=== PATIENT | male | born 1995 | race African-American/Black ===

== ENCOUNTER 2018-05-22 13:16 | Inpatient (IN) | payer OTHER ==
[2018-05-22 13:32] VITALS: BMI 32.4
--- NOTE | 2018-05-22 15:20 | HP ---
COWS - Scale Resting Pulse: 1= [place] 81-100 Sweatin= Chills/Flushing Restless Observation: 1= Difficult to Sit Still Pupil Size: 2= Moderately Dilated Bone or Joint Aches: 2= Severe Diffuse Aches Runny Nose/ Eye Tearin= None GI Upset > 30mins: 2= Nausea/Diarrhea Tremor Observation: 2= Slight Tremor Visible Yawning Observation: 0= None Anxiety or Irritability: 2=Irritable/Anxious Goose Flesh Skin: 0=Smooth Skin COWS Score: 13 CIWA Score Nausea/Vomitin Muscle Tremors: 2 Anxiety: 3 Agitation: 2 Paroxysmal Sweats: 2 Orientation: 0-Oriented Tacttile Disturbances: 0-None Auditory Disturbances: 0-None Visual Disturbances: 0-None Headache: 2-Mild CIWA-Ar Total Score: 13 - Admission Criteria OASAS Guidelines: Admission for Medically Managed Detox: Requires at least one of the followin. CIWA greater than 12 2. Seizures within the past 24 hours 3. Delirium tremens within the past 24 hours 4. Hallucinations within the past 24 hours 5. Acute intervention needed for co occurring medical disorder 6. Acute intervention needed for co occurring psychiatric disorder 7. Severe withdrawal that cannot be handled at a lower level of care (continued vomiting, continued diarrhea, abnormal vital signs) requiring intravenous medication and/or fluids 8. Admission ROS [facility] Chief Complaint: ETOH/HEROIN WITHDRAWAL SYMPTOMS Allergies/Adverse Reactions: Allergies Allergy/AdvReac Type Severity Reaction Status Date / Time peanut Allergy Severe Difficulty Verified 05/22/18 14:42 Breathing tree nut Allergy Severe Difficulty Verified 05/22/18 14:42 Breathing History of Present Illness: PATIENT STARTED DRINKING ETOH AT AGE 14, INITIALLY WOULD DRINK UNTIL HE BLACKED OUT. PATIENT THEN [place] AND STARTED SMOKING MARIJUANA, AMOUNT VARIES. COCAINE USE STARTED AT AGE 18. PATIENT CURRENTLY DRINKS 6 BEERS AND 1 PINT OF LIQUOR DAILY, LAST DRINK WAS EARLY YESTERDAY MORNING. PATIENT ALSO SNIFFS/ SMOKES HEROIN, 10 BAGS DAILY, LAST TIME HE USED WAS THIS MORNING. PATIENT TAKES 6MG OF XANAX AND KLONIPIN DAILY, LAST TIME HE TOOK MEDICATION (NON-PRESCRIBED WAS LAST NIGHT). UDS + THC, OPI. PATIENT LAST DETOX ATTEMPT AT [facility] IN 03/2018. PATIENT DENIES H/O SEIZURES, FALLS AND OVERDOSE. + H/O BLACKOUTS. PMH ASTHMA AND ANXIETY. DENIES SI/HI AND SUICIDE ATTEMPTS. Exam Limitations: No Limitations - Ebola screening Have you traveled outside of the country in the last 21 days: No Have you had contact with anyone from an Ebola affected area: No Have you been sick,other than usual withdrawal symptoms: No Do you have a fever: No - Review of Systems Constitutional: Chills, Night Sweats, Changes in sleep EENT: reports: No Symptoms Reported Respiratory: reports: No Symptoms reported Cardiac: reports: No Symptoms Reported GI: reports: Diarrhea, Nausea, Poor Fluid Intake, Abdominal cramping : reports: No Symptoms Reported Musculoskeletal: reports: Back Pain, Muscle Pain Integumentary: reports: Sweating Neuro: reports: Headache, Tremors Endocrine: reports: No Symptoms Reported Hematology: reports: No Symptoms Reported Psychiatric: reports: Orientated x3, Anxious Patient History - Patient Medical History Hx Anemia: No Hx Asthma: Yes (childhood asthma) Hx Cancer: No Hx Cardiac Disorders: No Hx Congestive Heart Failure: No Hx Hypertension: No Hx Hypercholesterolemia: No Hx Pacemaker: No HX Cerebrovascular Accident: No Hx Seizures: No Hx Dementia: No Hx Diabetes: No Hx Gastrointestinal Disorders: No Hx Liver Disease: No Hx Genitourinary Disorders: No Hx Sexually Transmitted Disorders: No Hx Renal Disease (ESRD): No Hx Thyroid Disease: No Hx Human Immunodeficiency Virus (HIV): No (negative) Hx Hepatitis C: No Hx Depression: No Hx Suicide Attempt: No (denies) Hx Bipolar Disorder: No Hx Schizophrenia: No - Patient Surgical History Past Surgical History: Yes Hx Orthopedic Surgery: Yes (R hand and wrist sx in 2007 tendon and nerve repair. ) Anesthesia Reaction: No - PPD History Date: 08/10/15 PPD to be Administered?: Yes - Smoking Cessation Smoking history: Never smoked Hx Chewing Tobacco Use: No Initiated information on smoking cessation: No - Substance & Tx. History Hx Alcohol Use: Yes Hx Substance Use: Yes Substance Use Type: Alcohol, Cocaine, Heroin, Marijuana, Tranquilizers - Substances Abused Heroin Route: Inhalation Frequency: Daily Amount used: 10 bags Age of first use: 17 Date of Last Use: 05/22/18 Benzodiazepine (Klonopin) Route: Oral Frequency: Daily Amount used: 2 2mg tablets Age of first use: 17 Date of Last Use: 05/21/18 Alprazolam (Xanax) Route: Oral Frequency: 1-3 times last 30 days Amount used: 1 bar Age of first use: 10 Date of Last Use: 05/16/18 Alcohol Route: Oral Frequency: Daily Amount used: 6 12oz cans of soda, 1 pint of [place], 1 bottle of wine Age of first use: 14 Date of Last Use: 05/20/18 Marijuana/Hashish Route: Smoking Frequency: Daily Amount used: 1 gram Age of first use: 16 Date of Last Use: 05/22/18 Family Disease History - Family Disease History Family History: Denies Admission Physical Exam [facility] - Vital Signs Vital Signs: Vital Signs - 24 hr 05/22/18 13:22 Temperature 97.8 F Pulse Rate 81 Respiratory 19 Rate Blood Pressure 121/93 - Physical General Appearance: Yes: Disheveled, Tremorous, Sweating, Anxious HEENTM: Yes: EOMI, Hearing grossly Normal, Normal ENT Inspection, Normocephalic , Normal Voice, SHAYNE, Pharynx Normal Respiratory: Yes: Chest Non-Tender, Lungs Clear, Normal Breath Sounds, No Respiratory Distress, No Accessory Muscle Use Neck: Yes: Within Normal Limits, No masses,lesions,Nodules, Supple Breast: Yes: Breast Exam Deferred Cardiology: Yes: Regular Rhythm, Regular Rate, S1, S2 Abdominal: Yes: Normal Bowel Sounds, Non Tender, Soft Genitourinary: Yes: Within Normal Limits Back: Yes: Normal Inspection, Muscle Spasm Musculoskeletal: Yes: full range of Motion, Gait Steady, Back pain, Muscle Pain Extremities: Yes: Normal Inspection, Normal Range of Motion, Non-Tender, Tremors Neurological: Yes: 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 NML intact, Fully Oriented, Alert, Motor Strength 5/5, Normal Response (ANXIOUS) Integumentary: Yes: Normal Color, Warm, Moist - Diagnostic (1) Cocaine abuse Current Visit: Yes Status: Chronic (2) Alcohol dependence with uncomplicated withdrawal Current Visit: Yes Status: Acute (3) Cannabis dependence Current Visit: Yes Status: Chronic (4) Opioid dependence with withdrawal Current Visit: Yes Status: Acute (5) Substance-induced anxiety disorder Current Visit: Yes Status: Chronic Cleared for Admission [facility] - Detox or Rehab [facility] Level of Care: Medically Managed Detox Regimen/Protocol: Methadone/Valium [facility] Breath Alcohol Content Breath Alcohol Content: 0 Urine Drug Screen - Results Drug Screen Negative: No Urine Drug Screen Results: THC-Marijuana, OPI-Opiates
[2018-05-22] MEDS ORDERED: MAGNESIUM HYDROX 2400MG/30ML ORAL SUSPENSION 30 ML CUP PO PRN (15:30)
[2018-05-22] MEDS ORDERED: MAGNESIUM CITRATE 300 ML BOTTLE PO PRN (15:30)
[2018-05-22] MEDS ORDERED: IBUPROFEN 400 MG TABLET (FP) PO PRN (15:30)
[2018-05-22] MEDS ORDERED: LOPERAMIDE HCL 2 MG CAPSULE PO PRN (15:30)
[2018-05-22] MEDS ORDERED: hydrOXYzine PAMOATE 50 MG CAPSULE (FP) PO PRN (15:30)
[2018-05-22] MEDS ORDERED: MENTHOL/PHENOL 1 EACH UD MM PRN (15:30)
[2018-05-22] MEDS ORDERED: MAG HYDROX/AL HYDROX/SIMETH 30 ML UNIT-DOSE CUP PO PRN (15:30)
[2018-05-22] MEDS ORDERED: guaiFENesin/D-METHORPHAN HB 10 ML UNIT-DOSE CUPS PO PRN (15:30)
[2018-05-22] MEDS ORDERED: ACETAMINOPHEN 325 MG TABLET (FP) PO PRN (15:30)
[2018-05-22] MEDS ORDERED: P-EPHED 60MG/TRIPROLIDI 2.5MG TABLET PO PRN (15:30)
[2018-05-22] MEDS ORDERED: ALBUTEROL SO4 8 GM HFA INHALER IH PRN (15:32)
[2018-05-22] MEDS ORDERED: diazePAM 5 MG TABLET PO PRN (15:33)
[2018-05-22] MEDS ORDERED: METHADONE HCL 10 MG TABLET (FOR DETOX USE ONLY) PO ONE ×2 (16:30→23:00)
[2018-05-22] MEDS ORDERED: diazePAM 5 MG TABLET PO ONE (16:30)
[2018-05-22] MEDS: diazePAM 5 MG TABLET PO SCH ×2 (17:59→22:26)
[2018-05-22] MEDS: MELATONIN 5 MG TABLETS PO PRN (22:26)
[2018-05-22] MEDS: THIAMINE HCL 100 MG TABLET (FP) PO SCH (22:26)
[2018-05-22 23:06] LABS: URINE APPEARANCE CLEAR; URINE BILIRUBIN NEGATIVE (<2.0 mg/dL); URINE COLOR STRAW; URINE GLUCOSE (UA) NEGATIVE (NEGATIVE); URINE KETONE NEGATIVE (NEGATIVE); URINE LEUK ESTERASE NEGATIVE (NEGATIVE); URINE NITRITE NEGATIVE (NEGATIVE); URINE PROTEIN NEGATIVE (NEGATIVE); URINE UROBILINOGEN NEGATIVE mg/dL (0.2-1.0)
[2018-05-23] MEDS: diazePAM 5 MG TABLET PO SCH ×3 (06:06→22:03)
[2018-05-23] MEDS ORDERED: METHADONE HCL 10 MG TABLET (FOR DETOX USE ONLY) PO SCH (10:00)
[2018-05-23 10:24] LABS: HEMATOCRIT 39.6 % (35.4-49); HEMOGLOBIN 12.7 GM/dL (11.7-16.9); MCH 28.2 pg (25.7-33.7); MCHC 32.1 g/dl (32.0-35.9); MEAN PLT VOLUME 7.4 fl (7.5-11.1); PLATELET COUNT 291 K/MM3 (134-434); RBC 4.51 M/mm3 (4.00-5.60); RDW 13.3 % (11.9-15.9); WHITE BLOOD COUNT 4.5 K/mm3 (4.0-10.0)
[2018-05-23] MEDS: PRENATAL VITAMINS W/ FOLIC ACID TABLET (FP) PO SCH (10:28)
[2018-05-23 10:42] LABS: ALBUMIN 3.8 g/dl (3.4-5.0); ALK PHOS 66 U/L (45-117); ANION GAP 7 MMOL/L (8-16); BILIRUBIN,TOTAL 0.4 mg/dL (0.2-1); BLOOD UREA NITROGEN 15 mg/dL (7-18); CALCIUM 8.9 mg/dL (8.5-10.1); CHLORIDE 101 mmol/L (98-107); CO2 30 mmol/L (21-32); GLUCOSE,RANDOM 73 mg/dL (74-106); POTASSIUM 4.3 mmol/L (3.5-5.1); SGOT/AST 17 U/L (15-37); SGPT/ALT 37 U/L (13-61); SODIUM 139 mmol/L (136-145); TOT PROT 6.6 g/dl (6.4-8.2)
--- NOTE | 2018-05-23 12:37 | EKG ---
Test Reason : Blood Pressure : / mmHG Vent. Rate : 059 BPM Atrial Rate : 059 BPM P-R Int : 170 ms QRS Dur : 092 ms QT Int : 390 ms P-R-T Axes : 049 070 050 degrees QTc Int : 386 ms SINUS BRADYCARDIA OTHERWISE NORMAL ECG Confirmed by MD AMINAH, SANJUANA ([id number]) on 05/23/2018 12:36:54 PM Referred By: Confirmed By:SANJUANA BURR MD
--- NOTE | 2018-05-23 14:46 | CONSULT ---
[facility] Psychiatric Consult - Data Date of interview: 05/23/18 Admission source: [facility] Identifying data: Readmission to [facility] for this 22 y/o AA male seeking detoxification treatment, on , for heroin, cocaine, alcohol, opioid analgesics and benzodiazepine (Clonazepam) dependence. Patient is single, no children, homeless, unemployed (just lost his job) and cureently without a source of income. Substance Abuse History: Confirmed by the patient. Details in current [facility] reports :Smoking history: Never smoked. Hx Chewing Tobacco Use: No. Initiated information on smoking cessation: No. - Substance & Tx. History. Hx Alcohol Use: Yes. Hx Substance Use: Yes. Substance Use Type: Alcohol, Cocaine, Heroin , Marijuana, Tranquilizers. - Substances Abused. Heroin. Route: Inhalation. Frequency: Daily. Amount used: 10 bags. Age of first use: 17. Date of Last Use: 05/22/18. Benzodiazepine (Klonopin). Route: Oral. Frequency: Daily. Amount used: 2 2mg tablets. Age of first use: 17. Date of Last Use: 05/21/18. Alprazolam (Xanax). Route: Oral. Frequency: 1-3 times last 30 days. Amount used: 1 bar. Age of first use: 10. Date of Last Use: . Alcohol. Route: Oral. Frequency: Daily. Amount used: 6 12oz cans of soda, 1 pint of [place], 1 bottle of wine. Age of first use: 14. Date of Last Use: 05/20/18. Marijuana/Hashish. Route: Smoking. Frequency: Daily. Amount used: 1 gram. Age of first use: 16. Date of Last Use: 05/22/18 Medical History: History of bronchial asthma (childhood) and surgery for tendon + nerve repair (right hand/wrist) in 2008, the consequence of impulsivity ( punching a glass door). Psychiatric History: Patient endorses a history of two psychiatric hospitalizations at [facility] ([facility]) in 2012. Diagnosed with Drug-induced psychosis (self-report). Mr Montiel indicates a family history of psychiatric issues (mother is diagnosed with bipolar disorder, father with PTSD and maternal grand mother with paranoid schizophrenia). Patient has no recall of medications orescribed in 2012. Declares that he has been off psychotropic medications since his discharge from [facility]. No reported history of psychiatric OPD care. Patient denies suicide attempts. Physical/Sexual Abuse/Trauma History: Patient denies. Additional Comment: Urine Drug Screen Results: THC-Marijuana, OPI-Opiates. Noted. Mental Status Exam - Mental Status Exam Alert and Oriented to: Time, Place, Person Cognitive Function: Good Patient Appearance: Well Groomed Mood: Withdrawn, Apprehensive Affect: Mood Congruent Patient Behavior: Fatigued, Cooperative Speech Pattern: Clear, Appropriate Voice Loudness: Normal Thought Process: Goal Oriented Thought Disorder: Not Present Hallucinations: Denies Suicidal Ideation: Denies Homicidal Ideation: Denies Insight/Judgement: Poor Sleep: Well Appetite: Good Muscle strength/Tone: Normal Gait/Station: Normal Psychiatric Findings - Problem List ([place] 1, 2,3) (1) Alcohol dependence with uncomplicated withdrawal Current Visit: Yes Status: Acute (2) Opioid dependence with withdrawal Current Visit: Yes Status: Acute (3) Cannabis dependence Current Visit: Yes Status: Acute (4) Cocaine abuse Current Visit: Yes Status: Chronic Comment: Tox screen negative for cocaine . Patient admitted to using cocaine on/off. (5) Substance induced mood disorder Current Visit: Yes Status: Acute - Initial Treatment Plan Initial Treatment Plan: Psychoeducation. Sleep hygiene. Detoxification. Observation.
--- NOTE | 2018-05-23 15:52 | PN ---
S CIWA - CIWA Score Nausea/Vomitin Muscle Tremors: 4-Moderate,w/Arms Extend Anxiety: 4-Mod. Anxious/Guarded Agitation: 4-Moderately Restless Paroxysmal Sweats: 3 Orientation: 0-Oriented Tacttile Disturbances: 0-None Auditory Disturbances: 0-None Visual Disturbances: 0-None Headache: 0-None Present CIWA-Ar Total Score: 17 BHS COWS - Scale Resting Pulse: 0= SC 80 or Below Sweatin=Flushed/Facial Moisture Restless Observation: 3= Extraneous Movement Pupil Size: 0= Normal to Room Light Bone or Joint Aches: 2= Severe Diffuse Aches Runny Nose/ Eye Tearin= Runny Nose/Eyes GI Upset > 30mins: 3= Vomiting/Diarrhea Tremor Observation of Outstretched Hands: 2= Slight Tremor Visible Yawning Observation: 0= None Anxiety or Irritability: 2=Irritable/Anxious Goose Flesh Skin: 0=Smooth Skin COWS Score: 16 S Progress Note (SOAP) Subjective: Stomach ache, diarrhea, chills, sweating Objective: 05/23/18 15:51 Last Vital Signs Temp Pulse Resp BP Pulse Ox 97.1 F L 58 L 18 118/62 05/23/18 13:11 05/23/18 13:11 05/23/18 13:11 05/23/18 13:11 Laboratory Tests 05/22/18 05/23/18 05/23/18 23:00 07:00 07:00 WBC 4.5 RBC 4.51 Hgb 12.7 Hct 39.6 MCV 88.0 MCH 28.2 MCHC 32.1 RDW 13.3 Plt Count 291 MPV 7.4 L Sodium 139 Potassium 4.3 Chloride 101 Carbon Dioxide 30 Anion Gap 7 L BUN 15 Creatinine 1.0 Creat Clearance w eGFR > 60 Random Glucose 73 L Calcium 8.9 Total Bilirubin 0.4 AST 17 ALT 37 Alkaline Phosphatase 66 Total Protein 6.6 Albumin 3.8 Urine Color Straw Urine Appearance Clear Urine pH 6.0 Ur Specific [place] 1.015 Urine Protein Negative Urine Glucose (UA) Negative Urine Ketones Negative Urine Blood Negative Urine Nitrite Negative Urine Bilirubin Negative Urine Urobilinogen Negative Ur Leukocyte Esterase Negative RPR Titer HIV 1&2 Antibody Screen HIV P24 Antigen 05/23/18 05/23/18 07:00 07:00 WBC RBC Hgb Hct MCV MCH MCHC RDW Plt Count MPV Sodium Potassium Chloride Carbon Dioxide Anion Gap BUN Creatinine Creat Clearance w eGFR Random Glucose Calcium Total Bilirubin AST ALT Alkaline Phosphatase Total Protein Albumin Urine Color Urine Appearance Urine pH Ur Specific [place] Urine Protein Urine Glucose (UA) Urine Ketones Urine Blood Urine Nitrite Urine Bilirubin Urine Urobilinogen Ur Leukocyte Esterase RPR Titer Nonreactive HIV 1&2 Antibody Screen Negative HIV P24 Antigen Negative Labs reviewed Assessment: 05/23/18 15:51 Withdrawal symptoms Plan: Continue detox Encouraged PO water intake
[2018-05-23] MEDS: THIAMINE HCL 100 MG TABLET (FP) PO SCH (22:02)
[2018-05-23] MEDS: MELATONIN 5 MG TABLETS PO PRN (22:03)
[2018-05-24] MEDS ORDERED: METHADONE HCL 5 MG TABLET (FOR DETOX USE ONLY) PO SCH (10:00)
[2018-05-24] MEDS: PRENATAL VITAMINS W/ FOLIC ACID TABLET (FP) PO SCH (10:20)
[2018-05-24] MEDS: diazePAM 5 MG TABLET PO SCH ×2 (10:20→21:33)
[2018-05-24] MEDS ORDERED: ONDANSETRON *ODT* 4 MG TABLET SL PRN (11:28)
--- NOTE | 2018-05-24 13:29 | PN ---
[facility] CIWA - CIWA Score Nausea/Vomitin-Mild Nausea/No Vomiting Muscle Tremors: 2 Anxiety: 3 Agitation: 3 Paroxysmal Sweats: 3 Orientation: 0-Oriented Tacttile Disturbances: 0-None Auditory Disturbances: 0-None Visual Disturbances: 0-None Headache: 1-Very Mild CIWA-Ar Total Score: 13 BHS COWS - Scale Resting Pulse: 0= [place] 80 or Below Sweatin= Chills/Flushing Restless Observation: 3= Extraneous Movement Pupil Size: 0= Normal to Room Light Bone or Joint Aches: 2= Severe Diffuse Aches Runny Nose/ Eye Tearin= None GI Upset > 30mins: 1= Stomach Cramp Tremor Observation of Outstretched Hands: 2= Slight Tremor Visible Yawning Observation: 1= 1-2x During Session Anxiety or Irritability: 2=Irritable/Anxious Goose Flesh Skin: 0=Smooth Skin COWS Score: 12 S Progress Note (SOAP) Subjective: N/V, stomach ache, sweating, chills, interrupted sleep, poor appetite Objective: 05/24/18 13:27 Last Vital Signs Temp Pulse Resp BP Pulse Ox 97.4 F L 68 18 100/78 05/24/18 09:57 05/24/18 09:57 05/24/18 09:57 05/24/18 09:57 Laboratory Tests 05/22/18 05/23/18 05/23/18 23:00 07:00 07:00 WBC 4.5 RBC 4.51 Hgb 12.7 Hct 39.6 MCV 88.0 MCH 28.2 MCHC 32.1 RDW 13.3 Plt Count 291 MPV 7.4 L Sodium 139 Potassium 4.3 Chloride 101 Carbon Dioxide 30 Anion Gap 7 L BUN 15 Creatinine 1.0 Creat Clearance w eGFR > 60 Random Glucose 73 L Calcium 8.9 Total Bilirubin 0.4 AST 17 ALT 37 Alkaline Phosphatase 66 Total Protein 6.6 Albumin 3.8 Urine Color Straw Urine Appearance Clear Urine pH 6.0 Ur Specific [place] 1.015 Urine Protein Negative Urine Glucose (UA) Negative Urine Ketones Negative Urine Blood Negative Urine Nitrite Negative Urine Bilirubin Negative Urine Urobilinogen Negative Ur Leukocyte Esterase Negative RPR Titer HIV 1&2 Antibody Screen HIV P24 Antigen 05/23/18 05/23/18 07:00 07:00 WBC RBC Hgb Hct MCV MCH MCHC RDW Plt Count MPV Sodium Potassium Chloride Carbon Dioxide Anion Gap BUN Creatinine Creat Clearance w eGFR Random Glucose Calcium Total Bilirubin AST ALT Alkaline Phosphatase Total Protein Albumin Urine Color Urine Appearance Urine pH Ur Specific [place] Urine Protein Urine Glucose (UA) Urine Ketones Urine Blood Urine Nitrite Urine Bilirubin Urine Urobilinogen Ur Leukocyte Esterase RPR Titer Nonreactive HIV 1&2 Antibody Screen Negative HIV P24 Antigen Negative Labs reviewed Assessment: 05/24/18 13:28 Withdrawal symptoms Plan: Continue detox Encouraged PO water intake
[2018-05-24] MEDS: MELATONIN 5 MG TABLETS PO PRN (21:33)
[2018-05-24] MEDS: THIAMINE HCL 100 MG TABLET (FP) PO SCH (21:33)
[2018-05-25 09:56] VITALS: BP 102/59; PULSE 65; TEMP 97.6
[2018-05-25] MEDS ORDERED: METHADONE HCL 10 MG TABLET (FOR DETOX USE ONLY) PO SCH (10:00)
[2018-05-25] MEDS: diazePAM 5 MG TABLET PO SCH (10:03)
[2018-05-25] MEDS: PRENATAL VITAMINS W/ FOLIC ACID TABLET (FP) PO SCH (10:03)
--- NOTE | 2018-05-25 13:22 | DS ---
[facility] Detox Discharge Summary Admission Date: 05/22/18 Discharge Date: 05/25/18 - History Present History: Alcohol Dependence, Cannabis Dependence, Opioid Dependence, Sedative Dependence Additional Comments: Patient had discharge date adjusted from Tuesday to Tuesday to [facility]. Patient decided to leave AMA today despite of encouragement from staff to complete detox. As per patient, he has to leave and didn't want to wait any longer. Patient instructed to call 911 if feeling sick or any withdrawal symptoms and to see his PCP within 3 days. Patient is A, A, Ox3, in nad, ambulatory. Pertinent Past History: Sedative dependence Alcohol dependence Cannabis dependence Opioid dependence Asthma - Physical Exam Results Vital Signs: Vital Signs Temperature 97.6 F 05/25/18 09:56 Pulse Rate 65 05/25/18 09:56 Respiratory Rate 18 05/25/18 09:56 Blood Pressure 102/59 L 05/25/18 09:56 O2 Sat by Pulse Oximetry (%) Pertinent Admission Physical Exam Findings: Withdrawal symptoms Laboratory Tests 05/22/18 05/23/18 05/23/18 23:00 07:00 07:00 WBC 4.5 RBC 4.51 Hgb 12.7 Hct 39.6 MCV 88.0 MCH 28.2 MCHC 32.1 RDW 13.3 Plt Count 291 MPV 7.4 L Sodium 139 Potassium 4.3 Chloride 101 Carbon Dioxide 30 Anion Gap 7 L BUN 15 Creatinine 1.0 Creat Clearance w eGFR > 60 Random Glucose 73 L Calcium 8.9 Total Bilirubin 0.4 AST 17 ALT 37 Alkaline Phosphatase 66 Total Protein 6.6 Albumin 3.8 Urine Color Straw Urine Appearance Clear Urine pH 6.0 Ur Specific [place] 1.015 Urine Protein Negative Urine Glucose (UA) Negative Urine Ketones Negative Urine Blood Negative Urine Nitrite Negative Urine Bilirubin Negative Urine Urobilinogen Negative Ur Leukocyte Esterase Negative RPR Titer HIV 1&2 Antibody Screen HIV P24 Antigen 05/23/18 05/23/18 07:00 07:00 WBC RBC Hgb Hct MCV MCH MCHC RDW Plt Count MPV Sodium Potassium Chloride Carbon Dioxide Anion Gap BUN Creatinine Creat Clearance w eGFR Random Glucose Calcium Total Bilirubin AST ALT Alkaline Phosphatase Total Protein Albumin Urine Color Urine Appearance Urine pH Ur Specific [place] Urine Protein Urine Glucose (UA) Urine Ketones Urine Blood Urine Nitrite Urine Bilirubin Urine Urobilinogen Ur Leukocyte Esterase RPR Titer Nonreactive HIV 1&2 Antibody Screen Negative HIV P24 Antigen Negative Labs reviewed - Medication Discharge Medications: Ambulatory Orders Albuterol Sulfate Inhaler - [Ventolin Hfa Inhaler -] 2 inh PO Q6H PRN 05/22/18 - Diagnosis (1) Sedative, hypnotic or anxiolytic dependence with withdrawal, uncomplicated Status: Acute (2) Alcohol dependence with uncomplicated withdrawal Status: Acute (3) Cannabis dependence Status: Chronic (4) Opioid dependence with withdrawal Status: Acute (5) Asthma Status: Chronic Qualifiers: Asthma severity: mild Asthma persistence: intermittent - AMA Did Patient Leave Against Medical Advice: Yes (Instructed to call 911 [place]AL[place] if feeling sick or any withdrawal symptoms)
[2018-05-26] MEDS ORDERED: METHADONE HCL 5 MG TABLET (FOR DETOX USE ONLY) PO SCH (06:00)
[2018-05-26] MEDS ORDERED: diazePAM 5 MG TABLET PO SCH (10:00)
[2018-05-26] MEDS ORDERED: METHADONE HCL 10 MG TABLET (FOR DETOX USE ONLY) PO SCH (10:00)
[2018-05-27] MEDS ORDERED: METHADONE HCL 5 MG TABLET (FOR DETOX USE ONLY) PO SCH (06:00)
== END 2018-05-25 13:12 | disposition left against medical advice (07) | DRG 770 ==
LOC: YASAS 13:16 → Y3N 15:41
PROC: HZ2ZZZZ Detoxification Services for Substance Abuse Treatment (ICD-10-PCS; principal; 2018-05-22)
DX: F11.23 Opioid dependence with withdrawal (principal); F10.230 Alcohol dependence with withdrawal, uncomplicated; F13.230 Sedative, hypnotic or anxiolytic dependence with withdrawal, uncomplicated; F12.20 Cannabis dependence, uncomplicated; J45.20 Mild intermittent asthma, uncomplicated; Z91.010 Allergy to peanuts
CPT/HCPCS: 36415; 80053; 81003; 85027; 86593; 87389; 93005; 93010; Q0162

== ENCOUNTER 2018-08-22 15:36 | Inpatient (IN) | payer OTHER ==
[2018-08-22 17:29] VITALS: BMI 32.4
--- NOTE | 2018-08-22 20:58 | HP ---
COWS - Scale Resting Pulse: 0= [place] 80 or Below Sweatin= Streaming Sweat Restless Observation: 1= Difficult to Sit Still Pupil Size: 1= Pupils >than Normal Bone or Joint Aches: 1= Mild Discomfort Runny Nose/ Eye Tearin= Runny Nose/Eyes GI Upset > 30mins: 2= Nausea/Diarrhea Tremor Observation: 1= Tremor [place], Not Seen Yawning Observation: 1= 1-2x During Session Anxiety or Irritability: 2=Irritable/Anxious Goose Flesh Skin: 0=Smooth Skin COWS Score: 15 CIWA Score - Admission Criteria [facility]ASAS Guidelines: Admission for Medically Managed Detox: Requires at least one of the followin. CIWA greater than 12 2. Seizures within the past 24 hours 3. Delirium tremens within the past 24 hours 4. Hallucinations within the past 24 hours 5. Acute intervention needed for co occurring medical disorder 6. Acute intervention needed for co occurring psychiatric disorder 7. Severe withdrawal that cannot be handled at a lower level of care (continued vomiting, continued diarrhea, abnormal vital signs) requiring intravenous medication and/or fluids 8. Admission ROS [facility] - HPI Chief Complaint: " I need to get this stuff out my system" Allergies/Adverse Reactions: Allergies Allergy/AdvReac Type Severity Reaction Status Date / Time peanut Allergy Severe Difficulty Verified 05/22/18 14:42 Breathing tree nut Allergy Severe Difficulty Verified 05/22/18 14:42 Breathing No Known Drug Allergies Allergy Verified 05/22/18 16:13 History of Present Illness: Patient is a 22 yo male with hx of nicotine and opioid dependence presents for heroin detox. PMHX: asthma, bipolar, anxiety and depression. Patient denies hx of seizures falls or overdose . Denies suicidal / homicidal ideation. Exam Limitations: No Limitations - Ebola screening Have you traveled outside of the country in the last 21 days: No Have you had contact with anyone from an Ebola affected area: No Have you been sick,other than usual withdrawal symptoms: No - Review of Systems Constitutional: Chills, Changes in sleep, Other (weight gain 40lbs in past six motnhs) EENT: reports: No Symptoms Reported Respiratory: reports: No Symptoms reported Cardiac: reports: No Symptoms Reported GI: reports: Poor Fluid Intake, Abdominal cramping : reports: No Symptoms Reported Musculoskeletal: reports: Back Pain, Joint Pain Integumentary: reports: No Symptoms Reported Neuro: reports: Headache Endocrine: reports: See HPI Hematology: reports: Anemia Psychiatric: reports: Orientated x3, Anxious, Depressed Other Systems: Reviewed and Negative Patient History - Patient Medical History Hx Anemia: No Hx Asthma: Yes (childhood asthma) Hx Chronic Obstructive Pulmonary Disease (COPD): No Hx Cancer: No Hx Cardiac Disorders: No Hx Congestive Heart Failure: No Hx Hypertension: No Hx Hypercholesterolemia: No Hx Pacemaker: No HX Cerebrovascular Accident: No Hx Seizures: No Hx Dementia: No Hx Diabetes: No Hx Gastrointestinal Disorders: No Hx Liver Disease: No Hx Genitourinary Disorders: No Hx Sexually Transmitted Disorders: No Hx Renal Disease (ESRD): No Hx Thyroid Disease: No Hx Human Immunodeficiency Virus (HIV): No (negative) Hx Hepatitis C: No Hx Depression: Yes Hx Suicide Attempt: No (denies) Hx Bipolar Disorder: Yes Hx Schizophrenia: No - Patient Surgical History Past Surgical History: Yes Hx Neurologic Surgery: No Hx Cataract Extraction: No Hx Cardiac Surgery: No Hx Lung Surgery: No Hx Breast Surgery: No Hx Breast Biopsy: No Hx Abdominal Surgery: No Hx Appendectomy: No Hx Cholecystectomy: No Hx Genitourinary Surgery: No Hx Orthopedic Surgery: Yes (R hand and wrist sx in 2007 tendon and nerve repair. ) Anesthesia Reaction: No - PPD History Previous Implant?: No Documented Results: Negative w/proof Date: 05/24/18 PPD to be Administered?: No - Smoking Cessation Smoking history: Current every day smoker Have you smoked in the past 12 months: Yes Aproximately how many cigarettes per day: 40 Cigars Per Day: 0 Hx Chewing Tobacco Use: No Initiated information on smoking cessation: Yes 'Breaking Loose' booklet given: 08/22/18 - Substance & Tx. History Hx Alcohol Use: No Hx Substance Use: Yes Substance Use Type: Heroin, Tranquilizers Hx Substance Use Treatment: Yes - Substances Abused heroin Route: Inhalation Frequency: Daily Amount used: 5 - 10 bags Age of first use: 20 Date of Last Use: 08/22/18 clonazepam Route: Oral Frequency: Daily Amount used: 1 mg Age of first use: 10 Date of Last Use: 08/22/18 Family Disease History - Family Disease History Family Disease History: [place]: Grandparent ( and liver cirrhosis ), Other: Father (hx of substance use disorder ), Mother (alcoholism ) Admission Physical Exam [facility] - Vital Signs Vital Signs: Vital Signs - 24 hr 08/22/18 17:27 Temperature 96.8 F L Pulse Rate 75 Respiratory 18 Rate Blood Pressure 111/59 L - Physical General Appearance: Yes: Appropriately Dressed, Mild Distress, Obese, Tremorous , Anxious HEENTM: Yes: EOMI, Hearing grossly Normal, Normal ENT Inspection, Normocephalic , Normal Voice, SHAYNE, Pharynx Normal, Tm's normal Respiratory: Yes: Chest Non-Tender, Lungs Clear, Normal Breath Sounds, No Respiratory Distress, No Accessory Muscle Use Neck: Yes: Within Normal Limits Breast: Yes: Breast Exam Deferred Cardiology: Yes: Regular Rhythm, Regular Rate Abdominal: Yes: Normal Bowel Sounds, Non Tender, Soft, Protuberent Genitourinary: Yes: Within Normal Limits Back: Yes: Normal Inspection Musculoskeletal: Yes: Within Normal Limits Extremities: Yes: Within Normal Limits Neurological: Yes: record cutter II-XII NML intact, Fully Oriented, Alert, Motor Strength 5/5, Depressed Affect Integumentary: Yes: Normal Color, Warm, Moist Lymphatic: Yes: Within Normal Limits - Diagnostic (1) Opioid dependence with withdrawal Current Visit: Yes Status: Acute (2) Asthma Current Visit: Yes Status: Chronic Qualifiers: Asthma severity: mild Asthma persistence: intermittent Cleared for Admission [facility] - Detox or Rehab [facility] Level of Care: Medically Managed Detox Regimen/Protocol: Methadone [facility] Breath Alcohol Content Breath Alcohol Content: 0 Urine Drug Screen - Results Drug Screen Negative: No Urine Drug Screen Results: THC-Marijuana, OPI-Opiates, AMP-Amphetamines, FEN- Fentanyl Inpatient Rehab Admission - Rehab Decision to Admit Inpatient rehab admission?: No
[2018-08-22] MEDS ORDERED: MAGNESIUM HYDROX 2400MG/30ML ORAL SUSPENSION 30 ML CUP PO PRN (21:06)
[2018-08-22] MEDS ORDERED: IBUPROFEN 400 MG TABLET (FP) PO PRN (21:06)
[2018-08-22] MEDS ORDERED: MENTHOL/PHENOL 1 EACH UD MM PRN (21:06)
[2018-08-22] MEDS ORDERED: guaiFENesin/D-METHORPHAN HB 10 ML UNIT-DOSE CUPS PO PRN (21:06)
[2018-08-22] MEDS ORDERED: MAG HYDROX/AL HYDROX/SIMETH 30 ML UNIT-DOSE CUP PO PRN (21:06)
[2018-08-22] MEDS ORDERED: P-EPHED 60MG/TRIPROLIDI 2.5MG TABLET PO PRN (21:06)
[2018-08-22] MEDS ORDERED: METHADONE HCL 10 MG TABLET (FOR DETOX USE ONLY) PO ONE ×2 (21:06→23:00)
[2018-08-22] MEDS ORDERED: diazePAM 5 MG TABLET PO PRN (21:06)
[2018-08-22] MEDS ORDERED: ACETAMINOPHEN 325 MG TABLET (FP) PO PRN (21:06)
[2018-08-22] MEDS ORDERED: LOPERAMIDE HCL 2 MG CAPSULE PO PRN (21:06)
[2018-08-22] MEDS ORDERED: MAGNESIUM CITRATE 300 ML BOTTLE PO PRN (21:06)
[2018-08-23] MEDS ORDERED: METHADONE HCL 10 MG TABLET (FOR DETOX USE ONLY) PO ONE ×4 (01:14→23:00)
[2018-08-23] MEDS: diazePAM 5 MG TABLET PO PRN ×3 (01:28→19:30)
[2018-08-23] MEDS: MELATONIN 5 MG TABLETS PO PRN ×2 (01:28→22:05)
[2018-08-23] MEDS: THIAMINE HCL 100 MG TABLET (FP) PO SCH ×2 (03:53→22:05)
[2018-08-23] MEDS: PRENATAL VITAMINS W/ FOLIC ACID TABLET (FP) PO SCH (10:11)
[2018-08-23 12:48] LABS: HEMATOCRIT 37.3 % (35.4-49); HEMOGLOBIN 12.4 GM/dL (11.7-16.9); MCH 29.1 pg (25.7-33.7); MCHC 33.3 g/dl (32.0-35.9); MEAN CELL VOLUME 87.6 fl (80-96); MEAN PLT VOLUME 7.5 fl (7.5-11.1); PLATELET COUNT 276 K/MM3 (134-434); RBC 4.26 M/mm3 (4.00-5.60); RDW 13.4 % (11.9-15.9); WHITE BLOOD COUNT 9.4 K/mm3 (4.0-10.0)
[2018-08-23 13:05] LABS: ALBUMIN 3.9 g/dl (3.4-5.0); ALK PHOS 63 U/L (45-117); ANION GAP 7 MMOL/L (8-16); BILIRUBIN,TOTAL 0.6 mg/dL (0.2-1); BLOOD UREA NITROGEN 14 mg/dL (7-18); CALCIUM 8.8 mg/dL (8.5-10.1); CHLORIDE 102 mmol/L (98-107); CO2 30 mmol/L (21-32); CREATININE 1.1 mg/dL (0.55-1.3); GLUCOSE,RANDOM 76 mg/dL (74-106); SGOT/AST 15 U/L (15-37); SGPT/ALT 20 U/L (13-61); SODIUM 139 mmol/L (136-145); TOT PROT 6.6 g/dl (6.4-8.2)
--- NOTE | 2018-08-23 15:06 | PN ---
BHS COWS - Scale Resting Pulse: 0= [place] 80 or Below Sweatin= Chills/Flushing Restless Observation: 0= Sits Still Pupil Size: 1= Pupils >than Normal Bone or Joint Aches: 2= Severe Diffuse Aches Runny Nose/ Eye Tearin= Nasal Congestion GI Upset > 30mins: 1= Stomach Cramp Tremor Observation of Outstretched Hands: 2= Slight Tremor Visible Yawning Observation: 2= >3x During Session Anxiety or Irritability: 1=Feels Anxious/Irritable Goose Flesh Skin: 0=Smooth Skin COWS Score: 11 BHS Progress Note (SOAP) Subjective: body aches joints pain irritable restlessness Objective: 08/23/18 15:05 Vital Signs Temperature 98.1 F 08/23/18 13:37 Pulse Rate 87 08/23/18 13:37 Respiratory Rate 18 08/23/18 13:37 Blood Pressure 136/76 08/23/18 13:37 O2 Sat by Pulse Oximetry (%) Laboratory Last Values WBC 9.4 K/mm3 (4.0-10.0) 08/23/18 07:00 RBC 4.26 M/mm3 (4.00-5.60) 08/23/18 07:00 Hgb 12.4 GM/dL (11.7-16.9) 08/23/18 07:00 Hct 37.3 % (35.4-49) 08/23/18 07:00 MCV 87.6 fl (80-96) 08/23/18 07:00 MCH 29.1 pg (25.7-33.7) 08/23/18 07:00 MCHC 33.3 g/dl (32.0-35.9) 08/23/18 07:00 RDW 13.4 % (11.9-15.9) 08/23/18 07:00 Plt Count 276 K/MM3 (134-434) 08/23/18 07:00 MPV 7.5 fl (7.5-11.1) 08/23/18 07:00 Sodium 139 mmol/L (136-145) 08/23/18 07:00 Potassium 4.0 mmol/L (3.5-5.1) 08/23/18 07:00 Chloride 102 mmol/L (98-107) 08/23/18 07:00 Carbon Dioxide 30 mmol/L (21-32) 08/23/18 07:00 Anion Gap 7 MMOL/L (8-16) L 08/23/18 07:00 BUN 14 mg/dL (7-18) 08/23/18 07:00 Creatinine 1.1 mg/dL (0.55-1.3) 08/23/18 07:00 Creat Clearance w eGFR > 60 (>60) 08/23/18 07:00 Random Glucose 76 mg/dL (74-106) 08/23/18 07:00 Calcium 8.8 mg/dL (8.5-10.1) 08/23/18 07:00 Total Bilirubin 0.6 mg/dL (0.2-1) 08/23/18 07:00 AST 15 U/L (15-37) 08/23/18 07:00 ALT 20 U/L (13-61) 08/23/18 07:00 Alkaline Phosphatase 63 U/L (45-117) 08/23/18 07:00 Total Protein 6.6 g/dl (6.4-8.2) 08/23/18 07:00 Albumin 3.9 g/dl (3.4-5.0) 08/23/18 07:00 lab noted Assessment: 08/23/18 15:05 withdrawal sx Plan: continue detox
[2018-08-23 23:17] LABS: URINE APPEARANCE CLEAR; URINE BILIRUBIN NEGATIVE (<2.0 mg/dL); URINE COLOR COLORLESS; URINE GLUCOSE (UA) NEGATIVE (NEGATIVE); URINE KETONE NEGATIVE (NEGATIVE); URINE LEUK ESTERASE NEGATIVE (NEGATIVE); URINE NITRITE NEGATIVE (NEGATIVE); URINE PROTEIN NEGATIVE (NEGATIVE); URINE UROBILINOGEN NEGATIVE mg/dL (0.2-1.0)
--- NOTE | 2018-08-24 08:13 | CONSULT ---
[facility] Psychiatric Consult - Data Date of interview: 08/24/18 Admission source: [facility] Identifying data: History of Present Illness: Patient is a 22 yo male with hx of nicotine and opioid dependence presents for heroin detox. PMHX: asthma, bipolar, anxiety and depression. Patient denies hx of seizures falls or overdose . Denies suicidal / homicidal ideation. Exam Limitations: No Limitations Substance Abuse History: Smoking history: Current every day smoker. Have you smoked in the past 12 months: Yes. Aproximately how many cigarettes per day: 40. Cigars Per Day: 0. Hx Chewing Tobacco Use: No. Initiated information on smoking cessation: Yes. 'Breaking Loose' booklet given: 08/22/18. - Substance & Tx. History. Hx Alcohol Use: No. Hx Substance Use: Yes. Substance Use Type : Heroin, Tranquilizers. Hx Substance Use Treatment: Yes. - Substances Abused. heroin. Route: Inhalation. Frequency: Daily. Amount used: 5 - 10 bags. Age of first use: 20. Date of Last Use: 08/22/18. clonazepam. Route : Oral. Frequency: Daily. Amount used: 1 mg. Age of first use: 10. Date of Last Use: 08/22/18
[2018-08-24] MEDS: diazePAM 5 MG TABLET PO PRN (09:02)
[2018-08-24] MEDS: PRENATAL VITAMINS W/ FOLIC ACID TABLET (FP) PO SCH (09:03)
[2018-08-24] MEDS ORDERED: METHADONE HCL 10 MG TABLET (FOR DETOX USE ONLY) PO ONE (10:00)
[2018-08-24] MEDS ORDERED: METHADONE HCL 5 MG TABLET (FOR DETOX USE ONLY) PO ONE (10:00)
[2018-08-24] MEDS: QUEtiapine FUMARATE 200 MG TABLET PO SCH ×2 (10:07→22:13)
--- NOTE | 2018-08-24 15:34 | PN ---
BHS COWS - Scale Resting Pulse: 0= [place] 80 or Below Sweatin= Chills/Flushing Restless Observation: 0= Sits Still Pupil Size: 1= Pupils >than Normal Bone or Joint Aches: 1= Mild Discomfort Runny Nose/ Eye Tearin= Nasal Congestion GI Upset > 30mins: 1= Stomach Cramp Tremor Observation of Outstretched Hands: 1= Tremor [place], Not Seen Yawning Observation: 0= None Anxiety or Irritability: 1=Feels Anxious/Irritable Goose Flesh Skin: 0=Smooth Skin COWS Score: 7 BHS Progress Note (SOAP) Subjective: body aches tremor muscle cramping sweating Objective: 08/24/18 15:35 tremor anxiety nausea able to tolerate fluid Assessment: 08/24/18 15:36 opiate withdrawal sx 08/24/18 15:36 Plan: continue opiate detox
[2018-08-24] MEDS: THIAMINE HCL 100 MG TABLET (FP) PO SCH (22:13)
[2018-08-25] MEDS ORDERED: METHADONE HCL 5 MG TABLET (FOR DETOX USE ONLY) PO ONE ×2 (10:00)
[2018-08-25] MEDS: PRENATAL VITAMINS W/ FOLIC ACID TABLET (FP) PO SCH (10:05)
[2018-08-25] MEDS: QUEtiapine FUMARATE 200 MG TABLET PO SCH ×2 (10:05→22:09)
[2018-08-25] MEDS: diazePAM 5 MG TABLET PO PRN (10:05)
--- NOTE | 2018-08-25 17:55 | PN ---
BHS Progress Note (SOAP) Subjective: Sweating, Hot / Cold Sensations, Muscle Cramping. Objective: PATIENT A & O X 3. IN NO ACUTE DISTRESS. 08/25/18 17:56 Vital Signs Temperature 98.5 F 08/25/18 17:52 Pulse Rate 73 08/25/18 17:52 Respiratory Rate 16 08/25/18 17:52 Blood Pressure 96/60 08/25/18 17:52 O2 Sat by Pulse Oximetry (%) Laboratory Tests 08/23/18 08/23/18 08/23/18 07:00 07:00 07:00 WBC 9.4 RBC 4.26 Hgb 12.4 Hct 37.3 MCV 87.6 MCH 29.1 MCHC 33.3 RDW 13.4 Plt Count 276 MPV 7.5 Sodium 139 Potassium 4.0 Chloride 102 Carbon Dioxide 30 Anion Gap 7 L BUN 14 Creatinine 1.1 Creat Clearance w eGFR > 60 Random Glucose 76 Calcium 8.8 Total Bilirubin 0.6 AST 15 ALT 20 Alkaline Phosphatase 63 Total Protein 6.6 Albumin 3.9 Urine Color Urine Appearance Urine pH Ur Specific [place] Urine Protein Urine Glucose (UA) Urine Ketones Urine Blood Urine Nitrite Urine Bilirubin Urine Urobilinogen Ur Leukocyte Esterase RPR Titer Nonreactive 08/23/18 21:00 WBC RBC Hgb Hct MCV MCH MCHC RDW Plt Count MPV Sodium Potassium Chloride Carbon Dioxide Anion Gap BUN Creatinine Creat Clearance w eGFR Random Glucose Calcium Total Bilirubin AST ALT Alkaline Phosphatase Total Protein Albumin Urine Color Colorless Urine Appearance Clear Urine pH 7.0 Ur Specific [place] 1.008 L Urine Protein Negative Urine Glucose (UA) Negative Urine Ketones Negative Urine Blood Negative Urine Nitrite Negative Urine Bilirubin Negative Urine Urobilinogen Negative Ur Leukocyte Esterase Negative RPR Titer LABS NOTED. Assessment: 08/25/18 17:56 WITHDRAWAL SYMPTOMS. Plan: CONTINUE DETOX. INCREASE DAILY PO FLUID INTAKE.
[2018-08-25] MEDS: THIAMINE HCL 100 MG TABLET (FP) PO SCH (22:09)
[2018-08-25] MEDS: MELATONIN 5 MG TABLETS PO PRN (22:09)
[2018-08-26 06:31] VITALS: TEMP 97.2
[2018-08-26] MEDS ORDERED: METHADONE HCL 10 MG TABLET (FOR DETOX USE ONLY) PO ONE (10:00)
[2018-08-26] MEDS ORDERED: METHADONE HCL 5 MG TABLET (FOR DETOX USE ONLY) PO ONE (10:00)
[2018-08-26] MEDS: PRENATAL VITAMINS W/ FOLIC ACID TABLET (FP) PO SCH (10:20)
[2018-08-26] MEDS: QUEtiapine FUMARATE 200 MG TABLET PO SCH (10:20)
[2018-08-26 14:10] VITALS: BP 129/69; PULSE 92
--- NOTE | 2018-08-26 15:33 | PN ---
BHS Progress Note (SOAP) Subjective: Tremors, Indigestion, Stomach Cramping, Hot / Cold Sensations. Objective: PATIENT A & O X 3. IN NO ACUTE DISTRESS. 08/26/18 15:33 Vital Signs Temperature 97.2 F L 08/26/18 06:30 Pulse Rate 92 H 08/26/18 14:09 Respiratory Rate 18 08/26/18 14:09 Blood Pressure 129/69 08/26/18 14:09 O2 Sat by Pulse Oximetry (%) Laboratory Tests 08/23/18 08/23/18 08/23/18 07:00 07:00 07:00 WBC 9.4 RBC 4.26 Hgb 12.4 Hct 37.3 MCV 87.6 MCH 29.1 MCHC 33.3 RDW 13.4 Plt Count 276 MPV 7.5 Sodium 139 Potassium 4.0 Chloride 102 Carbon Dioxide 30 Anion Gap 7 L BUN 14 Creatinine 1.1 Creat Clearance w eGFR > 60 Random Glucose 76 Calcium 8.8 Total Bilirubin 0.6 AST 15 ALT 20 Alkaline Phosphatase 63 Total Protein 6.6 Albumin 3.9 Urine Color Urine Appearance Urine pH Ur Specific [place] Urine Protein Urine Glucose (UA) Urine Ketones Urine Blood Urine Nitrite Urine Bilirubin Urine Urobilinogen Ur Leukocyte Esterase RPR Titer Nonreactive 08/23/18 21:00 WBC RBC Hgb Hct MCV MCH MCHC RDW Plt Count MPV Sodium Potassium Chloride Carbon Dioxide Anion Gap BUN Creatinine Creat Clearance w eGFR Random Glucose Calcium Total Bilirubin AST ALT Alkaline Phosphatase Total Protein Albumin Urine Color Colorless Urine Appearance Clear Urine pH 7.0 Ur Specific [place] 1.008 L Urine Protein Negative Urine Glucose (UA) Negative Urine Ketones Negative Urine Blood Negative Urine Nitrite Negative Urine Bilirubin Negative Urine Urobilinogen Negative Ur Leukocyte Esterase Negative RPR Titer LABS NOTED. Assessment: 08/26/18 15:33 WITHDRAWAL SYMPTOMS. Plan: CONTINUE DETOX. INCREASE DAILY PO FLUID INTAKE. ENCOURAGE AMBULATION.
--- NOTE | 2018-08-26 15:38 | DS ---
[facility] Detox Discharge Summary Admission Date: 08/22/18 Discharge Date: 08/26/18 - History Present History: Opioid Dependence Additional Comments: PATIENT REPORTS THAT HE HAS FAMILY OBLIGATIONS TO ATTEND TO AND THAT HE NO LONGER WISHES TO REMAIN TO COMPLETE DETOX REGIMEN. RISKS OF LEAVING DETOX UNIT AGAINST MEDICAL ADVICE AND PRIOR TO COMPLETION OF DETOX REGIMEN EXPLAINED TO PATIENT. PATIENT ADVISED TO GO IMMEDIATELY TO NEAREST ER SHOULD ANY INTOLERABLE DETOX SYMPTOMS DEVELOP AT ANY TIME. PATIENT VERBALIZED UNDERSTANDING OF ALL INFORMATION / RECOMMENDATIONS PRESENTED TO HIM PRIOR TO DEPARTURE FROM DETOX UNIT. PATIENT DECLINED OFFER OF MEDICATION PRESCRIPTION FOR HOME MEDICATION AT TIME IN WHICH HE WAS LEAVING DETOX UNIT, NOTING THAT HE CURRENTLY HAS ADEQUATE SUPPLIES OF ALL PRESCRIBED HOME MEDICATIONS AT HOME.PATIENT LEFT DETOX UNIT IN STABLE MEDICAL CONDITION. Pertinent Past History: Asthma, History of Depression, History of Bipolar Disorder. - Physical Exam Results Vital Signs: Vital Signs Temperature 97.2 F L 08/26/18 06:30 Pulse Rate 92 H 08/26/18 14:09 Respiratory Rate 18 08/26/18 14:09 Blood Pressure 129/69 08/26/18 14:09 O2 Sat by Pulse Oximetry (%) Pertinent Admission Physical Exam Findings: WITHDRAWAL SYMPTOMS. Laboratory Tests 08/23/18 08/23/18 08/23/18 07:00 07:00 07:00 WBC 9.4 RBC 4.26 Hgb 12.4 Hct 37.3 MCV 87.6 MCH 29.1 MCHC 33.3 RDW 13.4 Plt Count 276 MPV 7.5 Sodium 139 Potassium 4.0 Chloride 102 Carbon Dioxide 30 Anion Gap 7 L BUN 14 Creatinine 1.1 Creat Clearance w eGFR > 60 Random Glucose 76 Calcium 8.8 Total Bilirubin 0.6 AST 15 ALT 20 Alkaline Phosphatase 63 Total Protein 6.6 Albumin 3.9 Urine Color Urine Appearance Urine pH Ur Specific [place] Urine Protein Urine Glucose (UA) Urine Ketones Urine Blood Urine Nitrite Urine Bilirubin Urine Urobilinogen Ur Leukocyte Esterase RPR Titer Nonreactive 08/23/18 21:00 WBC RBC Hgb Hct MCV MCH MCHC RDW Plt Count MPV Sodium Potassium Chloride Carbon Dioxide Anion Gap BUN Creatinine Creat Clearance w eGFR Random Glucose Calcium Total Bilirubin AST ALT Alkaline Phosphatase Total Protein Albumin Urine Color Colorless Urine Appearance Clear Urine pH 7.0 Ur Specific [place] 1.008 L Urine Protein Negative Urine Glucose (UA) Negative Urine Ketones Negative Urine Blood Negative Urine Nitrite Negative Urine Bilirubin Negative Urine Urobilinogen Negative Ur Leukocyte Esterase Negative RPR Titer LABS NOTED. - Treatment Hospital Course: Detox Protocol Followed, Detoxed Safely - Medication Discharge Medications: Ambulatory Orders Albuterol Sulfate Inhaler - [Ventolin Hfa Inhaler -] 2 inh PO Q6H PRN 05/22/18 Naloxone HCl [Narcan] 4 mg NS ASDIR PRN 08/24/18 Quetiapine Fumarate [Seroquel -] 200 mg PO BID #60 tablet 08/24/18 - Diagnosis (1) Opioid dependence with withdrawal Status: Acute (2) Asthma Status: Chronic Qualifiers: Asthma severity: mild Asthma persistence: intermittent Asthma complication type: uncomplicated Qualified Code(s): J45.20 - Mild intermittent asthma, uncomplicated - AMA Did Patient Leave Against Medical Advice: Yes (PT HAS FAMILY ISSUES AND DOES NOT WISH TO COMPLETE DETOX REGIMEN.)
[2018-08-27] MEDS ORDERED: METHADONE HCL 5 MG TABLET (FOR DETOX USE ONLY) PO ONE (06:00)
[2018-08-27] MEDS ORDERED: METHADONE HCL 10 MG TABLET (FOR DETOX USE ONLY) PO ONE (10:00)
[2018-08-28] MEDS ORDERED: METHADONE HCL 5 MG TABLET (FOR DETOX USE ONLY) PO ONE (06:00)
== END 2018-08-26 14:30 | disposition left against medical advice (07) | DRG 770 ==
LOC: YASAS 15:36 → Y3N 22:00
PROVIDERS: ADMIT Surgery; ATTEND Surgery
PROC: HZ2ZZZZ Detoxification Services for Substance Abuse Treatment (ICD-10-PCS; principal; 2018-08-22)
DX: F11.23 Opioid dependence with withdrawal (principal); F17.210 Nicotine dependence, cigarettes, uncomplicated; Z91.010 Allergy to peanuts
CPT/HCPCS: 36415; 80053; 81003; 85027; 86593

== ENCOUNTER 2018-11-03 16:40 | Inpatient (IN) | payer OTHER ==
[2018-11-03 20:02] VITALS: BMI 32.9
--- NOTE | 2018-11-03 20:42 | HP ---
COWS - Scale Resting Pulse: 0= [place] 80 or Below Sweatin=Flushed/Facial Moisture Restless Observation: 1= Difficult to Sit Still Pupil Size: 1= Pupils >than Normal (Pupils = 4 mm) Bone or Joint Aches: 0= None Runny Nose/ Eye Tearin= Runny Nose/Eyes GI Upset > 30mins: 1= Stomach Cramp Tremor Observation: 2= Slight Tremor Visible Yawning Observation: 0= None Anxiety or Irritability: 4=Extreme Anxiety Goose Flesh Skin: 0=Smooth Skin COWS Score: 13 CIWA Score - Admission Criteria OASAS Guidelines: Admission for Medically Managed Detox: Requires at least one of the followin. CIWA greater than 12 2. Seizures within the past 24 hours 3. Delirium tremens within the past 24 hours 4. Hallucinations within the past 24 hours 5. Acute intervention needed for co occurring medical disorder 6. Acute intervention needed for co occurring psychiatric disorder 7. Severe withdrawal that cannot be handled at a lower level of care (continued vomiting, continued diarrhea, abnormal vital signs) requiring intravenous medication and/or fluids 8. Admission ROS [facility] Chief Complaint: Heroin withdrawal symptoms. Allergies/Adverse Reactions: Allergies Allergy/AdvReac Type Severity Reaction Status Date / Time peanut Allergy Severe Difficulty Verified 11/03/18 19:57 Breathing tree nut Allergy Severe Difficulty Verified 11/03/18 19:57 Breathing No Known Drug Allergies Allergy Verified 11/03/18 19:57 History of Present Illness: 23 yom w/ hx opioid dependence presents for heroin detox. Heroin use since age 20. Currently smoking and increased to 8 bags over course of last month. Marijuana use since age 16. 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 Nicotine use since age 19. Denies current alcohol use. Patient denies hx of seizures falls or overdose . Discharged from [facility] on 09/26/18 and states used within a few hours of discharge. EK05/22/18: Sinus Bradycardia - otherwise WNL. PMHX: Asthma - associated w/ SOB x 3 days ago; heart murmur: MHHx:Bipolar, anxiety and depression. Denies thoughts of harming self. Very emotional. Encouraged f/u Provider. Patient Name: Beni Montiel Date: 1995 Address: [address] [facility] [place] [address] Sex: Male Rx Written Rx Dispensed Drug Quantity Days Supply Prescriber Name 10/17/2018 10/18/2018 chlordiazepoxide 25 mg capsule 8 4 Sb Cunningham 06/15/2018 06/16/2018 chlordiazepoxide 25 mg capsule 8 2 Sb Cunningham Exam Limitations: No Limitations - Ebola screening Have you traveled outside of the country in the last 21 days: No (N) Have you had contact with anyone from an Ebola affected area: No Have you been sick,other than usual withdrawal symptoms: No (Denies recent exposure to measles) Do you have a fever: No - Review of Systems Constitutional: Chills, Diaphoresis EENT: reports: Nose Bleeding (12 - 13 years ago), Nose Congestion Respiratory: reports: No Symptoms reported Cardiac: reports: Other (Hx heart murmur) GI: reports: Nausea : reports: Other (Difficulty urinating when uses heroin.) Musculoskeletal: reports: No Symptoms Reported Integumentary: reports: Other (Cut (R) buttocks r/t fall.) Neuro: reports: Headache (Mild.), Numbness ((R) hand r/t previous injury) Endocrine: reports: No Symptoms Reported Hematology: reports: Anemia (Iron deficiency at age 12.) Psychiatric: reports: Judgement Intact, Orientated x3, Agitated, Anxious, Depressed (Denies thoughts of harming self. States was on Wellbutrin and stopped taking years ago.) Patient History - Patient Medical History Hx Anemia: No Hx Asthma: Yes Hx Chronic Obstructive Pulmonary Disease (COPD): No Hx Cancer: No Hx Cardiac Disorders: No Hx Congestive Heart Failure: No Hx Hypertension: No Hx Hypercholesterolemia: No Hx Pacemaker: No HX Cerebrovascular Accident: No Hx Seizures: No Hx Dementia: No Hx Diabetes: No Hx Gastrointestinal Disorders: No Hx Liver Disease: No Hx Genitourinary Disorders: No Hx Sexually Transmitted Disorders: No Hx Renal Disease (ESRD): No Hx Thyroid Disease: No Hx Human Immunodeficiency Virus (HIV): No (negative) Hx Hepatitis C: No Hx Depression: Yes Hx Suicide Attempt: No Hx Bipolar Disorder: Yes Hx Schizophrenia: No - Patient Surgical History Past Surgical History: Yes Hx Neurologic Surgery: No Hx Cataract Extraction: No Hx Cardiac Surgery: No Hx Lung Surgery: No Hx Breast Surgery: No Hx Breast Biopsy: No Hx Abdominal Surgery: No Hx Appendectomy: No Hx Cholecystectomy: No Hx Genitourinary Surgery: No Hx Orthopedic Surgery: Yes (R hand and wrist sx in 2008 tendon and nerve repair. ) Anesthesia Reaction: No - PPD History Previous Implant?: Yes Documented Results: Negative w/proof Implanted On Prior [facility] Admission?: Yes Date: 05/24/18 PPD to be Administered?: No - Smoking Cessation Smoking history: Current every day smoker Have you smoked in the past 12 months: Yes Aproximately how many cigarettes per day: 7 Cigars Per Day: 0 Hx Chewing Tobacco Use: No Initiated information on smoking cessation: Yes 'Breaking Loose' booklet given: 11/03/18 - Substance & Tx. History Hx Alcohol Use: Yes Hx Substance Use: Yes Substance Use Type: Heroin, Marijuana, Prescribed (Intermitten Librium) Hx Substance Use Treatment: Yes (detox, rehab ) - Substances abused Heroin Other (specify): SNIFF Substance route: Smoking Frequency: Daily Amount used: 8 BAGS Age of first use: 20 Date of last use: 11/03/18 Marijuana/Hashish Substance route: Smoking Frequency: Daily Amount used: 3 GRAMS Age of first use: 16 Date of last use: 11/03/18 Family Disease History - Family Disease History Family Disease History: CA: Grandparent ( and liver cirrhosis ), Other: Father (hx of substance use disorder ), Mother (alcoholism ) Admission Physical Exam S - Vital Signs Vital Signs: Vital Signs - 24 hr 11/03/18 11/03/18 19:55 20:25 Temperature 98.6 F 98.6 F Pulse Rate 76 76 Respiratory 18 18 Rate Blood Pressure 117/71 117/71 - Physical General Appearance: Yes: Nourished, Mild Distress, Tremorous, Sweating ( Increased facial moisture), Anxious, Other (Crying.) HEENTM: Yes: EOMI, Hearing grossly Normal, Normocephalic, SHAYNE (Pupils = 4 mm), Pharynx Normal, Nasal Congestion, Rhinorrhea Respiratory: Yes: No Respiratory Distress, Wheezing (Inspiratory wheeze w/o dyspnea) Neck: Yes: No masses,lesions,Nodules, Supple Breast: Yes: Breast Exam Deferred Cardiology: Yes: Regular Rate, S1, S2, Murmur Abdominal: Yes: Soft, Protuberent (Increased abdominal adiposity), Tenderness ( Mid-epigastric tenderness. No guarding. 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 NML intact, Fully Oriented, Alert, Motor Strength 5/5, Other (Crying, sad) Integumentary: Yes: Normal Color, Warm, Diaphoresis (Increased facial mositure) Lymphatic: Yes: Within Normal Limits - Diagnostic (1) Opioid dependence with withdrawal Current Visit: Yes Status: Acute (2) Asthma Current Visit: Yes Status: Acute Qualifiers: Asthma severity: mild Asthma persistence: intermittent Asthma complication type: uncomplicated Qualified Code(s): J45.20 - Mild intermittent asthma, uncomplicated (3) Cannabis dependence Current Visit: Yes Status: Chronic (4) Nicotine dependence, uncomplicated Current Visit: Yes Status: Chronic Qualifiers: Nicotine product type: cigarettes Qualified Code(s): F17.210 - Nicotine dependence, cigarettes, uncomplicated Cleared for Admission S - Detox or Rehab [facility] Level of Care: Medically Managed Detox Regimen/Protocol: Methadone Claeared for Rehab Admission: No Breathalyzer - Breathalyzer Breathalyzer: 0 Urine Drug Screen - Test Device Lot number: [id number] Expiration date: 07/27/20 - Control Is test valid?: Yes - Results Drug screen NEGATIVE: No Urine drug screen results: THC-Marijuana, FEN-Fentanyl, MOP-Opiates, OXY- Oxycodone, BZO-Benzodiazepines Inpatient Rehab Admission - Rehab Decision to Admit Inpatient rehab admission?: No
[2018-11-03] MEDS ORDERED: MELATONIN 5 MG TABLETS PO PRN (21:33)
[2018-11-03] MEDS ORDERED: IBUPROFEN 400 MG TABLET (FP) PO PRN (21:33)
[2018-11-03] MEDS ORDERED: P-EPHED 60MG/TRIPROLIDI 2.5MG TABLET PO PRN (21:33)
[2018-11-03] MEDS ORDERED: MAGNESIUM CITRATE 300 ML BOTTLE PO PRN (21:33)
[2018-11-03] MEDS ORDERED: BISMUTH SUBSALICYLATE 524 MG/30 ML UD PO PRN (21:33)
[2018-11-03] MEDS ORDERED: clonazePAM 0.5 MG TABLET PO PRN (21:33)
[2018-11-03] MEDS ORDERED: NALOXONE HCL 0.4 MG/ML VIAL IVPUSH PRN (21:33)
[2018-11-03] MEDS ORDERED: METHOCARBAMOL 500 MG TABLET PO PRN (21:33)
[2018-11-03] MEDS ORDERED: NICOTINE 14 MG/24 HOURS TOPICAL PATCH TD PRN (21:33)
[2018-11-03] MEDS ORDERED: guaiFENesin 200 MG/10 ML 10 ML UNIT-DOSE CUPS PO PRN (21:33)
[2018-11-03] MEDS ORDERED: MENTHOL/PHENOL 1 EACH UD MM PRN (21:33)
[2018-11-03] MEDS ORDERED: ACETAMINOPHEN 325 MG TABLET (FP) PO PRN ×2 (21:33)
[2018-11-03] MEDS ORDERED: MAGNESIUM HYDROX 2400MG/30ML ORAL SUSPENSION 30 ML CUP PO PRN (21:33)
[2018-11-03] MEDS ORDERED: PROCHLORPERAZINE MALEATE 5 MG TABLET PO PRN (21:33)
[2018-11-03] MEDS ORDERED: cloNIDine HCL 0.1 MG TABLET PO PRN (21:33)
[2018-11-03] MEDS ORDERED: METHADONE HCL 10 MG TABLET (FOR DETOX USE ONLY) PO ONE (22:00)
[2018-11-03] MEDS ORDERED: ALBUTEROL SO4 0.083% IH SOL 2.5 MG/3 ML VIAL.NEB. NEB ONE (22:01)
[2018-11-03] MEDS: THIAMINE HCL 100 MG TABLET (FP) PO SCH (22:24)
[2018-11-03] MEDS ORDERED: QUEtiapine FUMARATE 100 MG TABLET (FP) PO ONE (23:00)
[2018-11-04] MEDS ORDERED: METHADONE HCL 5 MG TABLET (FOR DETOX USE ONLY) PO ONE (10:00)
[2018-11-04] MEDS: PRENATAL VITAMINS W/ FOLIC ACID TABLET (FP) PO SCH (10:51)
[2018-11-04 11:31] LABS: HEMATOCRIT 37.4 % (35.4-49); HEMOGLOBIN 12.2 GM/dL (11.7-16.9); MCH 28.5 pg (25.7-33.7); MCHC 32.7 g/dl (32.0-35.9); MEAN CELL VOLUME 87.3 fl (80-96); MEAN PLT VOLUME 7.6 fl (7.5-11.1); PLATELET COUNT 283 K/MM3 (134-434); RBC 4.29 M/mm3 (4.00-5.60); RDW 13.5 % (11.9-15.9); WHITE BLOOD COUNT 5.2 K/mm3 (4.0-10.0)
[2018-11-04 11:43] LABS: CREATININE 0.9 mg/dL (0.55-1.3); POTASSIUM 4.3 mmol/L (3.5-5.1)
[2018-11-04 11:44] LABS: ALBUMIN 3.9 g/dl (3.4-5.0); BILIRUBIN,TOTAL 0.2 mg/dL (0.2-1); TOT PROT 6.4 g/dl (6.4-8.2)
--- NOTE | 2018-11-04 15:01 | CONSULT ---
[facility] Psychiatric Consult - Data Date of interview: 11/04/18 Admission source: [facility] Identifying data: Readmission to [facility] for this 23 y/o AA male self- referred for detoxification treatment (heroin, cannabis). Examined at [address] [place] [address]. Patient is single, no children, domiciled, unemployed and supported on food stamps. Substance Abuse History: Confirmed by the patient in this interview. Details in current [facility] report as follows : Smoking history: Current every day smoker. Have you smoked in the past 12 months: Yes. Aproximately how many cigarettes per day: 7. Cigars Per Day: 0. Hx Chewing Tobacco Use: No. Initiated information on smoking cessation: Yes. 'Breaking Loose' booklet given: . - Substance & Tx. History. Hx Alcohol Use: Yes. Hx Substance Use: Yes. Substance Use Type: Heroin, Marijuana, Prescribed (Intermitten Librium). Hx Substance Use Treatment: Yes (detox, rehab ). - Substances abused. Heroin. Other (specify): SNIFF. Substance route: Smoking. Frequency: Daily. Amount used: 8 BAGS. Age of first use: 20. Date of last use: 11/03/18. Marijuana/ Hashish. Substance route: Smoking. Frequency: Daily. Amount used: 3 GRAMS. Age of first use: 16. Date of last use: 11/03/18 Medical History: History of bronchial asthma (childhood) and surgery for tendon + nerve repair (right hand/wrist) in 2008, the consequence of impulsivity ( punching a glass door). Psychiatric History: Patient endorses a history of 3-4 psychiatric hospitalizations ([facility] + [facility]). Diagnosed with Bipolar Disorder and PTSD. Mr Montiel indicates a family history of psychiatric issues (mother is diagnosed with bipolar disorder, father with PTSD and maternal grand mother with paranoid schizophrenia). Patient used to be followed at the [facility] OPD clinic in the [place]. Medicated with seroquel 200 mg po bid. Non-adherent. Patient admits to a suicide attempt in 2012 (overdose with wellbutrin). Physical/Sexual Abuse/Trauma History: Patient declines to discuss this domain. Additional Comment: Urine drug screen results: THC-Marijuana, FEN-Fentanyl, MOP- Opiates, OXY-Oxycodone, BZO-Benzodiazepines. Noted. Mental Status Exam - Mental Status Exam Alert and Oriented to: Time, Place, Person Cognitive Function: Good Patient Appearance: Well Groomed (tattoos on forerms) Mood: Irritable Affect: Mood Congruent, Blunted Patient Behavior: Fatigued, Appropriate, Cooperative Speech Pattern: Clear, Appropriate Voice Loudness: Normal Thought Process: Goal Oriented Thought Disorder: Bizarre Hallucinations: Denies Suicidal Ideation: Denies Homicidal Ideation: Denies Insight/Judgement: Poor Sleep: Poorly, Difficulty falling asleep Appetite: Good Muscle strength/Tone: Normal Gait/Station: Normal Psychiatric Findings - Problem List ([place] 1, 2,3) (1) Opioid dependence with withdrawal Current Visit: Yes Status: Acute (2) Cannabis dependence Current Visit: Yes Status: Chronic (3) Nicotine dependence, uncomplicated Current Visit: Yes Status: Chronic Qualifiers: Nicotine product type: cigarettes Qualified Code(s): F17.210 - Nicotine dependence, cigarettes, uncomplicated (4) Substance induced mood disorder Current Visit: Yes Status: Chronic (5) History of bipolar disorder Current Visit: Yes Status: Chronic (6) Non-compliance Current Visit: Yes Status: Chronic (7) Insomnia Current Visit: Yes Status: Chronic - Initial Treatment Plan Initial Treatment Plan: Psychoeducation. Sleep hygiene. Detoxification. Seroquel 100 mg po bid. Side effects/benefits discussed with patient. Mr Montiel gave verbal consent to MD. Wright.
--- NOTE | 2018-11-04 17:28 | PN ---
BHS COWS - Scale Resting Pulse: 0= [place] 80 or Below Sweatin= Chills/Flushing Restless Observation: 1= Difficult to Sit Still Pupil Size: 0= Normal to Room Light Bone or Joint Aches: 0= None Runny Nose/ Eye Tearin= None GI Upset > 30mins: 2= Nausea/Diarrhea Tremor Observation of Outstretched Hands: 0= None Yawning Observation: 1= 1-2x During Session Anxiety or Irritability: 2=Irritable/Anxious Goose Flesh Skin: 3=Piloerection COWS Score: 10 BHS Progress Note (SOAP) Subjective: Nausea, Hot / Cold Sensations, Sweating, Interrupted Sleep. Objective: PATIENT A & O X 3, OBSERVED AMBULATING ON UNIT UNASSISTED. IN NO ACUTE DISTRESS. 11/04/18 17:27 Vital Signs Temperature 97.5 F L 11/04/18 15:58 Pulse Rate 72 11/04/18 15:58 Respiratory Rate 18 11/04/18 15:58 Blood Pressure 116/68 11/04/18 15:58 O2 Sat by Pulse Oximetry (%) Laboratory Tests 11/04/18 11/04/18 11/04/18 08:00 08:00 08:00 WBC 5.2 RBC 4.29 Hgb 12.2 Hct 37.4 MCV 87.3 MCH 28.5 MCHC 32.7 RDW 13.5 Plt Count 283 MPV 7.6 Sodium 137 Potassium 4.3 Chloride 104 Carbon Dioxide 28 Anion Gap 5 L BUN 18 Creatinine 0.9 Est GFR (CKD-EPI)AfAm 137.10 Est GFR (CKD-EPI)NonAf 118.29 Random Glucose 88 Calcium 9.0 Total Bilirubin 0.2 AST 13 L ALT 20 Alkaline Phosphatase 73 Total Protein 6.4 Albumin 3.9 RPR Titer Nonreactive LABS NOTED. Assessment: 11/04/18 17:28 WITHDRAWAL SYMPTOMS. Plan: CONTINUE DETOX.
[2018-11-04] MEDS: QUEtiapine FUMARATE 100 MG TABLET (FP) PO SCH (22:19)
[2018-11-04] MEDS: THIAMINE HCL 100 MG TABLET (FP) PO SCH (22:19)
[2018-11-04] MEDS: NICOTINE POLACRILEX 2 MG GUM BUC PRN (22:21)
[2018-11-05] MEDS: PRENATAL VITAMINS W/ FOLIC ACID TABLET (FP) PO SCH (10:08)
[2018-11-05] MEDS: QUEtiapine FUMARATE 100 MG TABLET (FP) PO SCH ×2 (10:09→22:42)
[2018-11-05] MEDS ORDERED: METHADONE HCL 5 MG TABLET PO ONE (10:12)
[2018-11-05] MEDS ORDERED: METHADONE HCL 10 MG TABLET (FOR DETOX USE ONLY) PO ONE (10:28)
[2018-11-05] MEDS ORDERED: METHADONE (DETOX) 10 MG, METHADONE (DETOX) 5 MG PO ONE (10:40)
[2018-11-05] MEDS ORDERED: METHADONE HCL 10 MG TABLET (FOR DETOX USE ONLY) ONE (11:07)
[2018-11-05] MEDS ORDERED: METHADONE HCL 5 MG TABLET (FOR DETOX USE ONLY) ONE (11:07)
--- NOTE | 2018-11-05 13:11 | PN ---
BHS COWS - Scale Resting Pulse: 0= [place] 80 or Below Sweatin= Chills/Flushing Restless Observation: 1= Difficult to Sit Still Pupil Size: 0= Normal to Room Light Bone or Joint Aches: 1= Mild Discomfort Runny Nose/ Eye Tearin= None GI Upset > 30mins: 1= Stomach Cramp Tremor Observation of Outstretched Hands: 1= Tremor Damon, Not Seen Yawning Observation: 1= 1-2x During Session Anxiety or Irritability: 1=Feels Anxious/Irritable Goose Flesh Skin: 0=Smooth Skin COWS Score: 7 BHS Progress Note (SOAP) Subjective: patient preferring take methadone 15 mg detox dose in the morning discontinue hs methadone 15 mg begin 15 mg methadone am Objective: 11/05/18 13:11 Vital Signs Temperature 97.9 F 11/05/18 10:12 Pulse Rate 58 L 11/05/18 10:12 Respiratory Rate 18 11/05/18 10:12 Blood Pressure 118/51 L 11/05/18 10:12 O2 Sat by Pulse Oximetry (%) Laboratory Last Values WBC 5.2 K/mm3 (4.0-10.0) 11/04/18 08:00 RBC 4.29 M/mm3 (4.00-5.60) 11/04/18 08:00 Hgb 12.2 GM/dL (11.7-16.9) 11/04/18 08:00 Hct 37.4 % (35.4-49) 11/04/18 08:00 MCV 87.3 fl (80-96) 11/04/18 08:00 MCH 28.5 pg (25.7-33.7) 11/04/18 08:00 MCHC 32.7 g/dl (32.0-35.9) 11/04/18 08:00 RDW 13.5 % (11.9-15.9) 11/04/18 08:00 Plt Count 283 K/MM3 (134-434) 11/04/18 08:00 MPV 7.6 fl (7.5-11.1) 11/04/18 08:00 Sodium 137 mmol/L (136-145) 11/04/18 08:00 Potassium 4.3 mmol/L (3.5-5.1) 11/04/18 08:00 Chloride 104 mmol/L (98-107) 11/04/18 08:00 Carbon Dioxide 28 mmol/L (21-32) 11/04/18 08:00 Anion Gap 5 MMOL/L (8-16) L 11/04/18 08:00 BUN 18 mg/dL (7-18) 11/04/18 08:00 Creatinine 0.9 mg/dL (0.55-1.3) 11/04/18 08:00 Est GFR (CKD-EPI)AfAm 137.10 11/04/18 08:00 Est GFR (CKD-EPI)NonAf 118.29 11/04/18 08:00 Random Glucose 88 mg/dL (74-106) 11/04/18 08:00 Calcium 9.0 mg/dL (8.5-10.1) 11/04/18 08:00 Total Bilirubin 0.2 mg/dL (0.2-1) 11/04/18 08:00 AST 13 U/L (15-37) L 11/04/18 08:00 ALT 20 U/L (13-61) 11/04/18 08:00 Alkaline Phosphatase 73 U/L (45-117) 11/04/18 08:00 Total Protein 6.4 g/dl (6.4-8.2) 11/04/18 08:00 Albumin 3.9 g/dl (3.4-5.0) 11/04/18 08:00 RPR Titer Nonreactive (NONREACTIVE) 11/04/18 08:00 lab noted Assessment: 11/05/18 13:11 opiate withdrawal sx Plan: continue detox
[2018-11-05 13:59] LABS: URINE APPEARANCE CLEAR; URINE BILIRUBIN NEGATIVE (NEGATIVE); URINE CASTS 35 /lpf (0-8); URINE COLOR YELLOW; URINE GLUCOSE (UA) NEGATIVE (NEGATIVE); URINE KETONE NEGATIVE (NEGATIVE); URINE LEUK ESTERASE 1+ (NEGATIVE); URINE NITRITE NEGATIVE (NEGATIVE); URINE PROTEIN NEGATIVE (NEGATIVE); URINE RBC 1 /hpf (0-4); URINE UROBILINOGEN 0.2 mg/dL (0.2-1.0); URINE WBC 29 /hpf (0-5)
[2018-11-05] MEDS: NICOTINE POLACRILEX 2 MG GUM BUC PRN (18:58)
[2018-11-05] MEDS ORDERED: METHADONE HCL 10 MG TABLET PO ONE (21:38)
[2018-11-05] MEDS: THIAMINE HCL 100 MG TABLET (FP) PO SCH (22:41)
[2018-11-06] MEDS ORDERED: METHADONE HCL 10 MG TABLET (FOR DETOX USE ONLY) PO ONE (10:00)
[2018-11-06] MEDS: QUEtiapine FUMARATE 100 MG TABLET (FP) PO SCH ×2 (10:47→22:09)
[2018-11-06] MEDS: PRENATAL VITAMINS W/ FOLIC ACID TABLET (FP) PO SCH (10:47)
--- NOTE | 2018-11-06 14:14 | PN ---
BHS COWS - Scale Resting Pulse: 0= [place] 80 or Below Sweatin= Chills/Flushing Restless Observation: 1= Difficult to Sit Still Pupil Size: 0= Normal to Room Light Bone or Joint Aches: 1= Mild Discomfort Runny Nose/ Eye Tearin= None GI Upset > 30mins: 1= Stomach Cramp Tremor Observation of Outstretched Hands: 0= None Yawning Observation: 1= 1-2x During Session Anxiety or Irritability: 0= None Goose Flesh Skin: 0=Smooth Skin COWS Score: 5 BHS Progress Note (SOAP) Subjective: feeling better discuss aftercare with staff discuss medication assisted maintenance treatment program Objective: 11/06/18 14:15 Vital Signs Temperature 98.4 F 11/06/18 13:30 Pulse Rate 69 11/06/18 13:30 Respiratory Rate 18 11/06/18 13:30 Blood Pressure 124/61 11/06/18 13:30 O2 Sat by Pulse Oximetry (%) Laboratory Last Values WBC 5.2 K/mm3 (4.0-10.0) 11/04/18 08:00 RBC 4.29 M/mm3 (4.00-5.60) 11/04/18 08:00 Hgb 12.2 GM/dL (11.7-16.9) 11/04/18 08:00 Hct 37.4 % (35.4-49) 11/04/18 08:00 MCV 87.3 fl (80-96) 11/04/18 08:00 MCH 28.5 pg (25.7-33.7) 11/04/18 08:00 MCHC 32.7 g/dl (32.0-35.9) 11/04/18 08:00 RDW 13.5 % (11.9-15.9) 11/04/18 08:00 Plt Count 283 K/MM3 (134-434) 11/04/18 08:00 MPV 7.6 fl (7.5-11.1) 11/04/18 08:00 Sodium 137 mmol/L (136-145) 11/04/18 08:00 Potassium 4.3 mmol/L (3.5-5.1) 11/04/18 08:00 Chloride 104 mmol/L (98-107) 11/04/18 08:00 Carbon Dioxide 28 mmol/L (21-32) 11/04/18 08:00 Anion Gap 5 MMOL/L (8-16) L 11/04/18 08:00 BUN 18 mg/dL (7-18) 11/04/18 08:00 Creatinine 0.9 mg/dL (0.55-1.3) 11/04/18 08:00 Est GFR (CKD-EPI)AfAm 137.10 11/04/18 08:00 Est GFR (CKD-EPI)NonAf 118.29 11/04/18 08:00 Random Glucose 88 mg/dL (74-106) 11/04/18 08:00 Calcium 9.0 mg/dL (8.5-10.1) 11/04/18 08:00 Total Bilirubin 0.2 mg/dL (0.2-1) 11/04/18 08:00 AST 13 U/L (15-37) L 11/04/18 08:00 ALT 20 U/L (13-61) 11/04/18 08:00 Alkaline Phosphatase 73 U/L (45-117) 11/04/18 08:00 Total Protein 6.4 g/dl (6.4-8.2) 11/04/18 08:00 Albumin 3.9 g/dl (3.4-5.0) 11/04/18 08:00 Urine Color Yellow 11/05/18 09:48 Urine Appearance Clear 11/05/18 09:48 Urine pH 6.0 (5.0-8.0) 11/05/18 09:48 Ur Specific [place] 1.020 (1.010-1.035) 11/05/18 09:48 Urine Protein Negative (NEGATIVE) 11/05/18 09:48 Urine Glucose (UA) Negative (NEGATIVE) 11/05/18 09:48 Urine Ketones Negative (NEGATIVE) 11/05/18 09:48 Urine Blood Negative (NEGATIVE) 11/05/18 09:48 Urine Nitrite Negative (NEGATIVE) 11/05/18 09:48 Urine Bilirubin Negative (NEGATIVE) 11/05/18 09:48 Urine Urobilinogen 0.2 mg/dL (0.2-1.0) 11/05/18 09:48 Ur Leukocyte Esterase 1+ (NEGATIVE) H 11/05/18 09:48 Urine WBC (Auto) 29 /hpf (0-5) 11/05/18 09:48 Urine RBC (Auto) 1 /hpf (0-4) 11/05/18 09:48 Urine Casts (Auto) 35 /lpf (0-8) 11/05/18 09:48 U Epithel Cells (Auto) 1.0 /HPF (0-5/HPF) 11/05/18 09:48 Urine Bacteria (Auto) 42.0 /hpf (NEGATIVE) 11/05/18 09:48 RPR Titer Nonreactive (NONREACTIVE) 11/04/18 08:00 lab noted uti 11/06/18 14:16 Assessment: 11/06/18 14:17 opiate withdrawal sx uti Plan: continue detox bactrim ds bid
[2018-11-06] MEDS: SULFAMETHOXAZOLE/TRIMETHOPRIM 800MG/160MG D.S. TABLET PO SCH ×2 (16:17→22:09)
[2018-11-06] MEDS: NICOTINE POLACRILEX 2 MG GUM BUC PRN (16:50)
[2018-11-06] MEDS: THIAMINE HCL 100 MG TABLET (FP) PO SCH (22:09)
[2018-11-06] MEDS: MAG HYDROX/AL HYDROX/SIMETH 30 ML UNIT-DOSE CUP PO PRN (22:11)
[2018-11-07] MEDS ORDERED: METHADONE HCL 5 MG TABLET (FOR DETOX USE ONLY) PO ONE ×2 (06:00→10:45)
[2018-11-07] MEDS: QUEtiapine FUMARATE 100 MG TABLET (FP) PO SCH (10:45)
[2018-11-07] MEDS: PRENATAL VITAMINS W/ FOLIC ACID TABLET (FP) PO SCH (10:45)
[2018-11-07] MEDS: SULFAMETHOXAZOLE/TRIMETHOPRIM 800MG/160MG D.S. TABLET PO SCH (10:45)
[2018-11-07] MEDS: MAG HYDROX/AL HYDROX/SIMETH 30 ML UNIT-DOSE CUP PO PRN (10:48)
[2018-11-07 13:52] VITALS: BP 126/72; PULSE 77; TEMP 97.1
--- NOTE | 2018-11-07 16:11 | DS ---
[facility] Detox Discharge Summary Admission Date: 11/03/18 Discharge Date: 11/07/18 - History Present History: Opioid Dependence Additional Comments: 23 years old male admitted on 11/03/18 for opiate withdrawal stabilization completed detox regimen aftercare [facility] - Physical Exam Results Vital Signs: Vital Signs Temperature 97.1 F L 11/07/18 13:51 Pulse Rate 77 11/07/18 13:51 Respiratory Rate 18 11/07/18 13:51 Blood Pressure 126/72 11/07/18 13:51 O2 Sat by Pulse Oximetry (%) Pertinent Admission Physical Exam Findings: opiate withdrawal sx Laboratory Last Values WBC 5.2 K/mm3 (4.0-10.0) 11/04/18 08:00 RBC 4.29 M/mm3 (4.00-5.60) 11/04/18 08:00 Hgb 12.2 GM/dL (11.7-16.9) 11/04/18 08:00 Hct 37.4 % (35.4-49) 11/04/18 08:00 MCV 87.3 fl (80-96) 11/04/18 08:00 MCH 28.5 pg (25.7-33.7) 11/04/18 08:00 MCHC 32.7 g/dl (32.0-35.9) 11/04/18 08:00 RDW 13.5 % (11.9-15.9) 11/04/18 08:00 Plt Count 283 K/MM3 (134-434) 11/04/18 08:00 MPV 7.6 fl (7.5-11.1) 11/04/18 08:00 Sodium 137 mmol/L (136-145) 11/04/18 08:00 Potassium 4.3 mmol/L (3.5-5.1) 11/04/18 08:00 Chloride 104 mmol/L (98-107) 11/04/18 08:00 Carbon Dioxide 28 mmol/L (21-32) 11/04/18 08:00 Anion Gap 5 MMOL/L (8-16) L 11/04/18 08:00 BUN 18 mg/dL (7-18) 11/04/18 08:00 Creatinine 0.9 mg/dL (0.55-1.3) 11/04/18 08:00 Est GFR (CKD-EPI)AfAm 137.10 05/11/19 08:00 Est GFR (CKD-EPI)NonAf 118.29 11/04/18 08:00 Random Glucose 88 mg/dL (74-106) 11/04/18 08:00 Calcium 9.0 mg/dL (8.5-10.1) 11/04/18 08:00 Total Bilirubin 0.2 mg/dL (0.2-1) 11/04/18 08:00 AST 13 U/L (15-37) L 11/04/18 08:00 ALT 20 U/L (13-61) 11/04/18 08:00 Alkaline Phosphatase 73 U/L (45-117) 11/04/18 08:00 Total Protein 6.4 g/dl (6.4-8.2) 11/04/18 08:00 Albumin 3.9 g/dl (3.4-5.0) 11/04/18 08:00 Urine Color Yellow 11/05/18 09:48 Urine Appearance Clear 11/05/18 09:48 Urine pH 6.0 (5.0-8.0) 11/05/18 09:48 Ur Specific [place] 1.020 (1.010-1.035) 11/05/18 09:48 Urine Protein Negative (NEGATIVE) 11/05/18 09:48 Urine Glucose (UA) Negative (NEGATIVE) 11/05/18 09:48 Urine Ketones Negative (NEGATIVE) 11/05/18 09:48 Urine Blood Negative (NEGATIVE) 11/05/18 09:48 Urine Nitrite Negative (NEGATIVE) 11/05/18 09:48 Urine Bilirubin Negative (NEGATIVE) 11/05/18 09:48 Urine Urobilinogen 0.2 mg/dL (0.2-1.0) 11/05/18 09:48 Ur Leukocyte Esterase 1+ (NEGATIVE) H 11/05/18 09:48 Urine WBC (Auto) 29 /hpf (0-5) 11/05/18 09:48 Urine RBC (Auto) 1 /hpf (0-4) 11/05/18 09:48 Urine Casts (Auto) 35 /lpf (0-8) 11/05/18 09:48 U Epithel Cells (Auto) 1.0 /HPF (0-5/HPF) 11/05/18 09:48 Urine Bacteria (Auto) 42.0 /hpf (NEGATIVE) 11/05/18 09:48 RPR Titer Nonreactive (NONREACTIVE) 11/04/18 08:00 lab noted uti - Treatment Hospital Course: Detox Protocol Followed, Detoxed Safely, Responded well, Discharged Condition Good, Rehab Referral Accepted Patient has Accepted a Rehab Referral to: [facility] - Medication Discharge Medications: Ambulatory Orders Quetiapine Fumarate [Seroquel -] 200 mg PO BID #60 tablet 08/24/18 Lorazepam [Ativan] 1 mg PO DAILY 11/03/18 Albuterol Sulfate Inhaler - [Ventolin HFA Inhaler -] 2 inh PO Q6H PRN #1 inhaler 11/06/18 - Diagnosis (1) Asthma Status: Chronic Qualifiers: Asthma severity: mild Asthma persistence: persistent Asthma complication type: uncomplicated Qualified Code(s): J45.30 - Mild persistent asthma, uncomplicated (2) Nicotine dependence, uncomplicated Status: Acute Qualifiers: Nicotine product type: cigarettes Qualified Code(s): F17.210 - Nicotine dependence, cigarettes, uncomplicated (3) Substance induced mood disorder Status: Suspected - AMA Did Patient Leave Against Medical Advice: No
--- NOTE | 2018-11-07 20:57 | PN ---
BHS Progress Note Note: Pt arrived to Rehab unit 5N and left as soon as he got to the unit before being seen according to the nursing staff.
== END 2018-11-07 14:20 | disposition other institution (70) | DRG 773 ==
LOC: YASAS 16:40 → Y3N 21:10
PROVIDERS: ADMIT Surgery; ATTEND Surgery
PROC: HZ2ZZZZ Detoxification Services for Substance Abuse Treatment (ICD-10-PCS; principal; 2018-11-03)
DX: F11.23 Opioid dependence with withdrawal (principal); F12.20 Cannabis dependence, uncomplicated; F17.210 Nicotine dependence, cigarettes, uncomplicated; F19.24 Other psychoactive substance dependence with psychoactive substance-induced mood disorder; J45.30 Mild persistent asthma, uncomplicated; N39.0 Urinary tract infection, site not specified; G47.00 Insomnia, unspecified; Z91.010 Allergy to peanuts; Z91.19 Patient's noncompliance with other medical treatment and regimen
CPT/HCPCS: 36415; 80053; 81003; 85027; 86593

== ENCOUNTER 2018-11-07 15:28 | Inpatient (IN) | payer OTHER ==
[2018-11-07] MEDS ORDERED: MAGNESIUM HYDROX 2400MG/30ML ORAL SUSPENSION 30 ML CUP PO PRN (16:12)
[2018-11-07] MEDS ORDERED: NICOTINE 14 MG/24 HOURS TOPICAL PATCH TD PRN (16:12)
[2018-11-07] MEDS ORDERED: MAGNESIUM CITRATE 300 ML BOTTLE PO PRN (16:12)
[2018-11-07] MEDS ORDERED: LOPERAMIDE HCL 2 MG CAPSULE PO PRN (16:12)
[2018-11-07] MEDS ORDERED: IBUPROFEN 400 MG TABLET (FP) PO PRN (16:12)
[2018-11-07] MEDS ORDERED: guaiFENesin 200 MG/10 ML 10 ML UNIT-DOSE CUPS PO PRN (16:12)
[2018-11-07] MEDS ORDERED: MENTHOL/PHENOL 1 EACH UD MM PRN (16:12)
[2018-11-07] MEDS ORDERED: ACETAMINOPHEN 325 MG TABLET (FP) PO PRN (16:12)
[2018-11-07] MEDS ORDERED: MAG HYDROX/AL HYDROX/SIMETH 30 ML UNIT-DOSE CUP PO PRN (16:12)
[2018-11-07] MEDS ORDERED: NICOTINE POLACRILEX 2 MG GUM BC PRN (16:12)
[2018-11-07] MEDS ORDERED: P-EPHED 60MG/TRIPROLIDI 2.5MG TABLET PO PRN (16:12)
--- NOTE | 2018-11-07 16:12 | HP ---
[facility] Rehab Assess/Revision - Admission History Admitted to Rehab from: [facility] Date of Admission to Rehab: 11/07/18 - Findings Detox History & Physical reviewed: Yes Concur with findings: Yes Comments/Additional Findings: transferred from detox to rehab admission as per protocol Inpatient Rehab Admission - Rehab Decision to Admit Inpatient rehab admission?: Yes - Initial Determination Are CD services needed?: Yes Free of communicable disease: Yes Not in need of hospitalization: Yes - Rehab Admission Criteria Previous failed treatment: Yes Poor recovery environment: Yes Comorbidities: Yes Lacks judgement: No Patient is meeting Inpatient Rehab admission criteria:: Yes
[2018-11-07] MEDS ORDERED: ALBUTEROL SO4 8 GM HFA INHALER IH PRN (16:14)
[2018-11-07 16:23] VITALS: BP 120/62; PULSE 80; TEMP 98.2
[2018-11-07] MEDS ORDERED: QUEtiapine FUMARATE 200 MG TABLET PO SCH (22:00)
[2018-11-07] MEDS ORDERED: MELATONIN 5 MG TABLETS PO PRN (22:00)
[2018-11-07] MEDS ORDERED: SULFAMETHOXAZOLE/TRIMETHOPRIM 800MG/160MG D.S. TABLET PO SCH (22:00)
[2018-11-07] MEDS ORDERED: THIAMINE HCL 100 MG TABLET (FP) PO SCH (22:00)
[2018-11-08] MEDS ORDERED: PRENATAL VITAMINS W/ FOLIC ACID TABLET (FP) PO SCH (10:00)
== END 2018-11-07 16:30 | disposition left against medical advice (07) | DRG 770 ==
LOC: YASAS 15:28 → Y5N 15:31
PROVIDERS: ADMIT Neuromusculoskeletal Medicine & OMM; ATTEND Neuromusculoskeletal Medicine & OMM
PROC: HZ42ZZZ Group Counseling for Substance Abuse Treatment, Cognitive-Behavioral (ICD-10-PCS; principal; 2018-11-07)
DX: F11.20 Opioid dependence, uncomplicated (principal); F12.20 Cannabis dependence, uncomplicated; F17.210 Nicotine dependence, cigarettes, uncomplicated; J45.20 Mild intermittent asthma, uncomplicated; Z91.010 Allergy to peanuts

== ENCOUNTER 2019-06-14 10:16 | Inpatient (IN) | payer OTHER ==
[2019-06-14 11:41] VITALS: BMI 36.6
--- NOTE | 2019-06-14 13:08 | PN ---
"Teaching Attending Note Name of Resident: Fred Pro ATTENDING PHYSICIAN STATEMENT I saw and evaluated the patient. I reviewed the resident's note and discussed the case with the resident. I agree with the resident's findings and plan as documented. SUBJECTIVE:pt here for cannabis, benzodiazepine and opiate use, in [facility] 120 mg /day since 6 mo ago , latest dose today , reports he was referred by [facility] 2/2 ongoing daily opiate use as well as benzodazepines 3 x/week latest use 3 days ago ( Tuesday ) , daily cannabis. OBJECTIVE: wnwd Vital Signs - 24 hr 06/14/19 11:31 Temperature 97.2 F L Pulse Rate 91 H Respiratory 18 Rate Blood Pressure 113/65 Search Terms: doron raymundo, 1995 Search Date: 06/14/2019 12:33:32 PM. This report was requested by: Faby Gurrola | Reference #: [id number] There are no results for the search terms that you entered. ASSESSMENT AND PLAN: Opiate dependence on agonist therapy Cannabis dependence / Sedative abuse, episodic - rehab ."
--- NOTE | 2019-06-14 13:11 | HP ---
COWS - Scale Resting Pulse: 1= NC 81-100 Sweatin= Chills/Flushing Restless Observation: 0= Sits Still Pupil Size: 1= Pupils >than Normal Bone or Joint Aches: 0= None Runny Nose/ Eye Tearin= Nasal Congestion GI Upset > 30mins: 2= Nausea/Diarrhea Tremor Observation: 2= Slight Tremor Visible Yawning Observation: 1= 1-2x During Session Anxiety or Irritability: 1=Feels Anxious/Irritable Goose Flesh Skin: 0=Smooth Skin COWS Score: 10 CIWA Score - Admission Criteria OASAS Guidelines: Admission for Medically Managed Detox: Requires at least one of the followin. CIWA greater than 12 2. Seizures within the past 24 hours 3. Delirium tremens within the past 24 hours 4. Hallucinations within the past 24 hours 5. Acute intervention needed for co occurring medical disorder 6. Acute intervention needed for co occurring psychiatric disorder 7. Severe withdrawal that cannot be handled at a lower level of care (continued vomiting, continued diarrhea, abnormal vital signs) requiring intravenous medication and/or fluids 8. Admitting History and Physical - Admission Chief Complaint: heroin/bdz detox History of Present Illness: 23 yo m w/ PMH asthma and polysubstance abuse who [facility] for assistance with rehabilitation from opioid and benzodiazepine dependence. Patient endorses using ~5 bags of heroin and 3 bags of fentanyl (inhaled and smoked) daily since 19 years old. Patient has attempted detox before at [facility] with his last attempt being in April where he left AMA. Patient denies overdoses in the past. His last use was at [facility]. 11 am this morning. He has been in a methadone program since october at [facility]. His dose of 120mg daily has been confirmed with that facility. Patient endorses benzodiazepine use approx. 3 times per week since he was 10 years old. Patient states he would take 2pills of Valium or 4 pills of kolonopin. His last use was Tuesday/Tuesday of this week. Patient endorses using ~3g of marijuana daily since he was 16. Last use was today at 12pm. History Source: Patient Limitations to Obtaining History: No Limitations - Past Medical History Pulmonary: Yes: Asthma - Past Surgical History Past Surgical History: Yes: None - Smoking History Smoking history: Current every day smoker Have you smoked in the past 12 months: Yes Aproximately how many cigarettes per day: 7 - Alcohol/Substance Use Hx Alcohol Use: No - Social History Usual Living Arrangement: Yes: With Parent Admission [facility] Allergies/Adverse Reactions: Allergies Allergy/AdvReac Type Severity Reaction Status Date / Time peanut Allergy Severe Difficulty Verified 06/14/19 11:25 Breathing tree nut Allergy Severe Difficulty Verified 06/14/19 11:25 Breathing No Known Drug Allergies Allergy Verified 06/14/19 11:25 - Ebola screening Have you traveled outside of the country in the last 21 days: No (N) Have you had contact with anyone from an Ebola affected area: No Do you have a fever: No - Review of Systems Constitutional: Chills EENT: reports: No Symptoms Reported Respiratory: reports: Shortness of Breath (when smoking) Cardiac: reports: Chest Pain (when smoking) GI: reports: Abdominal cramping : reports: No Symptoms Reported Musculoskeletal: reports: No Symptoms Reported Neuro: reports: No Symptoms reported Psychiatric: reports: Judgement Intact, Mood/Affect Appropiate, Orientated x3 Patient History - Patient Medical History Hx Anemia: No Hx Asthma: Yes Hx Chronic Obstructive Pulmonary Disease (COPD): No Hx Cancer: No Hx Cardiac Disorders: No Hx Congestive Heart Failure: No Hx Hypertension: No Hx Hypercholesterolemia: No Hx Pacemaker: No HX Cerebrovascular Accident: No Hx Seizures: No Hx Dementia: No Hx Diabetes: No Hx Gastrointestinal Disorders: No Hx Liver Disease: No Hx Genitourinary Disorders: No Hx Sexually Transmitted Disorders: No Hx Renal Disease (ESRD): No Hx Thyroid Disease: No Hx Human Immunodeficiency Virus (HIV): No (negative 04/14 negative) Hx Hepatitis C: No Hx Depression: Yes Hx Suicide Attempt: No Hx Bipolar Disorder: Yes (on med) Hx Schizophrenia: No - Patient Surgical History Past Surgical History: Yes Hx Neurologic Surgery: No Hx Cataract Extraction: No Hx Cardiac Surgery: No Hx Lung Surgery: No Hx Breast Surgery: No Hx Breast Biopsy: No Hx Abdominal Surgery: No Hx Appendectomy: No Hx Cholecystectomy: No Hx Genitourinary Surgery: No Hx Orthopedic Surgery: Yes (R hand and wrist sx in 2007 tendon and nerve repair. ) Anesthesia Reaction: No - PPD History Date: 05/24/18 - Smoking Cessation Smoking history: Current every day smoker Have you smoked in the past 12 months: Yes Aproximately how many cigarettes per day: 7 Cigars Per Day: 0 Hx Chewing Tobacco Use: No Initiated information on smoking cessation: Yes 'Breaking Loose' booklet given: 06/14/19 - Substances abused Heroin Other (specify): SNIFF and smoke Substance route: Smoking (and inhaled) Frequency: Daily Amount used: 5 bags heroin Age of first use: 19 Date of last use: 06/14/19 (~11am) Marijuana/Hashish Substance route: Smoking Frequency: Daily Amount used: 3 GRAMS Age of first use: 16 Date of last use: 06/14/19 Benzodiazepine (Klonopin) Substance route: Oral Frequency: 1-2 times per week Amount used: 2 pills Age of first use: 10 Date of last use: 06/08/19 Diazepam Substance route: Oral Frequency: 1-2 times per week Amount used: 1 pill Age of first use: 23 Date of last use: 06/11/19 Other Other (specify): street fentanyl Substance route: Inhalation Frequency: Daily Amount used: 3-5 bags Age of first use: 23 Date of last use: 06/13/19 Admission Physical Exam S - Vital Signs Vital Signs: Vital Signs - 24 hr 06/14/19 11:31 Temperature 97.2 F L Pulse Rate 91 H Respiratory 18 Rate Blood Pressure 113/65 - Physical General Appearance: Yes: Nourished, Mild Distress HEENTM: Yes: EOMI, Hearing grossly Normal, Normal ENT Inspection, Normocephalic , Normal Voice, Other (pupils dilated to 3 mm and sluggish) Respiratory: Yes: Chest Non-Tender, Lungs Clear, Normal Breath Sounds, No Respiratory Distress, No Accessory Muscle Use Neck: Yes: Trachea in good position Cardiology: Yes: Regular Rhythm, S1, S2, Tachycardia. No: JVD, Murmur, Gallop/ S3, Gallop/S4 Abdominal: Yes: Flat, Soft, Decreased BS, Tenderness (tender to palpation in the RUQ) Extremities: Yes: Normal Capillary Refill, Normal Inspection, Non-Tender Neurological: Yes: production administrator II-XII NML intact, Fully Oriented, Alert, Motor Strength 5/5, Normal Mood/Affect, Normal Response Integumentary: Yes: Normal Color, Dry, Warm - Diagnostic (1) Benzodiazepine abuse Current Visit: Yes Status: Acute (2) Methadone maintenance therapy patient Current Visit: No Status: Acute (3) Nicotine dependence, uncomplicated Current Visit: No Status: Acute Qualifiers: Nicotine product type: cigarettes Qualified Code(s): F17.210 - Nicotine dependence, cigarettes, uncomplicated (4) Opioid dependence with withdrawal Current Visit: No Status: Acute (5) Asthma Current Visit: No Status: Chronic Qualifiers: Asthma severity: mild Asthma persistence: persistent Asthma complication type: uncomplicated Qualified Code(s): J45.30 - Mild persistent asthma, uncomplicated (6) Cannabis dependence Current Visit: No Status: Chronic (7) Insomnia Current Visit: No Status: Chronic Cleared for Admission S - Detox or Rehab [facility] Level of Care: Medically Managed Detox Regimen/Protocol: Not Applicable Claeared for Rehab Admission: Yes Breathalyzer - Breathalyzer Breathalyzer: 0 Urine Drug Screen - Test Device Lot number: [id number] Expiration date: 01/24/21 - Control Is test valid?: Yes - Results Drug screen NEGATIVE: No Urine drug screen results: THC-Marijuana, FEN-Fentanyl, MOP-Opiates, MTD- Methadone, BZO-Benzodiazepines Inpatient Rehab Admission - Rehab Decision to Admit Inpatient rehab admission?: Yes - Initial Determination Are CD services needed?: Yes Free of communicable disease: Yes Not in need of hospitalization: Yes - Rehab Admission Criteria Previous failed treatment: No Poor recovery environment: No Comorbidities: No Lacks judgement: Yes Patient is meeting Inpatient Rehab admission criteria:: Yes
[2019-06-14] MEDS ORDERED: MENTHOL/PHENOL 1 EACH UD MM PRN (13:37)
[2019-06-14] MEDS ORDERED: MAGNESIUM HYDROX 2400MG/30ML ORAL SUSPENSION 30 ML CUP PO PRN (13:37)
[2019-06-14] MEDS ORDERED: MAG HYDROX/AL HYDROX/SIMETH 30 ML UNIT-DOSE CUP PO PRN (13:37)
[2019-06-14] MEDS ORDERED: LOPERAMIDE HCL 2 MG CAPSULE PO PRN (13:37)
[2019-06-14] MEDS ORDERED: guaiFENesin 200 MG/10 ML 10 ML UNIT-DOSE CUPS PO PRN (13:37)
[2019-06-14] MEDS ORDERED: IBUPROFEN 400 MG TABLET (FP) PO PRN (13:37)
[2019-06-14] MEDS ORDERED: hydrOXYzine PAMOATE 25 MG CAPSULE (FP) PO PRN (13:37)
[2019-06-14] MEDS ORDERED: P-EPHED 60MG/TRIPROLIDI 2.5MG TABLET PO PRN (13:37)
[2019-06-14] MEDS ORDERED: MAGNESIUM CITRATE 300 ML BOTTLE PO PRN (13:37)
[2019-06-14] MEDS ORDERED: ACETAMINOPHEN 325 MG TABLET (FP) PO PRN (13:37)
[2019-06-14] MEDS ORDERED: ALBUTEROL SO4 8 GM HFA INHALER IH PRN (13:39)
--- NOTE | 2019-06-14 15:53 | PN ---
[facility] Progress Note Note: Pt is a 23 y/o male with a hx of polysubstance use disorder admitted from [facility] today. Pt reports he has been to this facility from treatment in the past. Pt denies any discomfort at this time except tiredness and sleepy. reports last BM today. denies n/v/d,chest pain or SOB. PMHx:Asthma Psych Hx: Bipolar Disorder Surgical Hx: Tendon and nerve repair, Right hand in 2007. Vital Signs - 24 hr 06/14/19 06/14/19 11:31 14:51 Temperature 97.2 F L 97.8 F Pulse Rate 91 H 61 Respiratory 18 18 Rate Blood Pressure 113/65 112/61 labs pending Alert o x 3 Heent:Normocephalic,perrla,eomi pharynx wnl nad but slightly fatigued but easily responds to communication oob ambulates with steady gait cardiac:s1 s2,rrr lungs:cta,carl. abdomen;soft,+bs,nt,nd extremities/skin:wnl,no edema. A/P new rehab pt Maintain safety Monitor patient behavior D/w patient about the incident as recorded below and pt maintains he has no more drugs on him. pt was informed that drugs are not allowed here in treatment and reminded pt of the therapeutic focus of this treatment facility. pt verbalized understanding and agreeable to poc. Below is copy of [facility] Nurses Note on admission: Pt was noted trying to sell weed to another pt , pt was counseled about this behavior by Melanie Tracy and greeting card writer. Pt was then counseled with Whit Santos during searched. Pt was asked if he had any more drugs on him. Pt confessed to having 3 bags of heroin taped to inside cheek of buttocks. Pt gave the heroin to Darius Montoya RN. Pt was thoroughly searched and was warned that if anything else was found it would be grounds for discharge. Report was given to Kirsty.
[2019-06-14 16:45] LABS: HEMATOCRIT 35.6 % (35.4-49); HEMOGLOBIN 11.6 GM/dL (11.7-16.9); MCH 28.6 pg (25.7-33.7); MCHC 32.5 g/dl (32.0-35.9); MEAN CELL VOLUME 87.9 fl (80-96); MEAN PLT VOLUME 7.5 fl (7.5-11.1); PLATELET COUNT 279 K/MM3 (134-434); RBC 4.05 M/mm3 (4.00-5.60); RDW 13.8 % (11.9-15.9); WHITE BLOOD COUNT 8.4 K/mm3 (4.0-10.0)
[2019-06-14 16:53] LABS: ALBUMIN 4.3 g/dl (3.4-5.0); ALK PHOS 116 U/L (45-117); ANION GAP 7 MMOL/L (8-16); BILIRUBIN,TOTAL < 0.1 mg/dL (0.2-1); BLOOD UREA NITROGEN 12.7 mg/dL (7-18); CALCIUM 8.9 mg/dL (8.5-10.1); CHLORIDE 102 mmol/L (98-107); CO2 29 mmol/L (21-32); CREATININE 0.9 mg/dL (0.55-1.3); GLUCOSE,RANDOM 89 mg/dL (74-106); POTASSIUM 4.1 mmol/L (3.5-5.1); SGOT/AST 24 U/L (15-37); SGPT/ALT 34 U/L (13-61); SODIUM 138 mmol/L (136-145); TOT PROT 7.1 g/dl (6.4-8.2)
[2019-06-14] MEDS ORDERED: MELATONIN 5 MG TABLETS PO PRN (22:00)
[2019-06-14] MEDS: THIAMINE HCL 100 MG TABLET (FP) PO SCH (22:01)
[2019-06-15] MEDS: METHADONE HCL 40 MG DISPERSABLE TABLET PO SCH (06:07)
[2019-06-15] MEDS: PRENATAL VITAMINS W/ FOLIC ACID TABLET (FP) PO SCH (10:04)
[2019-06-15] MEDS ORDERED: FLU VACCINE QUAD 60 MCG/0.5 ML (MDV 19-20) IM ONE (12:00)
[2019-06-15] MEDS ORDERED: ONDANSETRON *ODT* 4 MG TABLET SL PRN (12:17)
--- NOTE | 2019-06-15 12:24 | PN ---
[facility] Progress Note Note: Nurse Anne reported that pt c/o nausea and vomitting. Saw pt who reports he vomited x 1 and has constipation. pt reported on admission yesterday that he last moved his bowels same day. Pt became defensive and irritable during assessment questions about pattern of his regular BM(ask if he goes everyday or not) and he stormed out of the room mumbling disatisfaction. Pt appears somehow hypervigilant. However, pt was given the information on the availability of Imodium and Citroma ordered as needed. Vital Signs - 24 hr 06/14/19 06/15/19 06/15/19 14:51 03:30 07:02 Temperature 97.8 F 97.4 F L Pulse Rate 61 62 Respiratory 18 18 18 Rate Blood Pressure 112/61 138/91 Laboratory Tests 06/14/19 06/14/19 06/14/19 14:40 14:40 14:40 WBC 8.4 RBC 4.05 Hgb 11.6 L Hct 35.6 MCV 87.9 MCH 28.6 MCHC 32.5 RDW 13.8 Plt Count 279 MPV 7.5 Sodium 138 Potassium 4.1 Chloride 102 Carbon Dioxide 29 Anion Gap 7 L BUN 12.7 Creatinine 0.9 Est GFR (CKD-EPI)AfAm 137.10 Est GFR (CKD-EPI)NonAf 118.29 Random Glucose 89 Calcium 8.9 Total Bilirubin < 0.1 L AST 24 ALT 34 Alkaline Phosphatase 116 Total Protein 7.1 Albumin 4.3 RPR Titer Nonreactive Alert o x 3 nad oob ambulating with steady gait A/P n/v Zofran 8 mg sl Q8H prn for nausea or vomiting. Imodiun and citroma prn Addendum: Pt returned to provider after about 10 minutes to apologize for storming out of the room stating "I thought you were judging me because of the drugs I brought in yesterday. I'm not usually like that". This junior technical writer explained to patient the need for me to ask those routine GI assessment questions which is not specific to only him but to everyone with stomach complaints. Pt felt relieved after explaining. Pt was encouraged to move forward with his treatment/ goals.
[2019-06-15 12:36] LABS: EPI CELLS 10.2 /HPF (0-5/HPF); HYALINE CASTS 52 /lpf (0-8); URINE APPEARANCE CLEAR; URINE BACTERIA 12.7 /hpf (NEGATIVE); URINE BILIRUBIN NEGATIVE (NEGATIVE); URINE COLOR YELLOW; URINE GLUCOSE (UA) NEGATIVE (NEGATIVE); URINE KETONE NEGATIVE (NEGATIVE); URINE LEUK ESTERASE 1+ (NEGATIVE); URINE NITRITE NEGATIVE (NEGATIVE); URINE PROTEIN NEGATIVE (NEGATIVE); URINE RBC 1 /hpf (0-4); URINE UROBILINOGEN 0.2 mg/dL (0.2-1.0); URINE WBC 58 /hpf (0-5)
[2019-06-15] MEDS: NICOTINE POLACRILEX 2 MG GUM BUC PRN (14:23)
--- NOTE | 2019-06-15 18:18 | CONSULT ---
[facility] Psychiatric Consult - Data Date of interview: 06/15/19 Admission source: [facility]. Self-referred. Identifying data: Revisit to [facility] and direct admission to [address] for this 23 y/o AA male referred by his psychiatrist ([facility] program) for rehabilitative care addressing JAYLIN issues (heroin, cannabis, nicotine, benzodiazepine) co-morbid with mood dysregulation and impulse control disorder. Patient is single, no children, domiciled (lives with his mother), unemployed and supported on food stamps. Substance Abuse History: Discussed with the patient. Details in current [facility] report as follows : Smoking history: Current every day smoker. Have you smoked in the past 12 months: Yes. Aproximately how many cigarettes per day: 7. Cigars Per Day: 0. Hx Chewing Tobacco Use: No. Initiated information on smoking cessation: Yes. 'Breaking Loose' booklet given: 06/14/19. - Substances abused. Heroin. Other (specify): SNIFF and smoke. Substance route: Smoking (and inhaled). Frequency: Daily. Amount used: 5 bags heroin. Age of first use: 19. Date of last use: 06/14/19 (~11am). Marijuana/ Hashish. Substance route: Smoking. Frequency: Daily. Amount used: 3 GRAMS. Age of first use: 16. Date of last use: 06/14/19. Benzodiazepine (Klonopin) . Substance route: Oral. Frequency: 1-2 times per week. Amount used: 2 pills. Age of first use: 10. Date of last use: 06/08/19. Diazepam. Substance route: Oral. Frequency: 1-2 times per week. Amount used: 1 pill. Age of first use: 23. Date of last use: 06/11/19. Other. Other (specify): street fentanyl. Substance route: Inhalation. Frequency: Daily. Amount used: 3-5 bags. Age of first use: 23. Date of last use: 06/13/19 Medical History: Medical profile is remarkable for bistory of bronchial asthma ( childhood) and surgery for tendon + nerve repair (right hand/wrist) in 2008, the consequence of impulsivity (punching a glass door). Psychiatric History: Patient presents with a history of 3-4 psychiatric hospitalizations ([facility] + [facility]). He has been diagnosed with Bipolar Disorder and PTSD. Mr Montiel indicates a family history of psychiatric issues (mother is reportedly diagnosed with bipolar disorder, father with PTSD and maternal grand mother with paranoid schizophrenia). Patient used to be followed at the [facility] OPD clinic in the [place]. Maintained, in the past, on seroquel 200 mg po bid. Chronically non- adherent to medications and OPD care. Patient admits to a suicide attempt in 2012 (overdose with wellbutrin). Currently on methadone maintenace (120 mg/day) at a [facility] program in the [place]. Physical/Sexual Abuse/Trauma History: Patient denies. Additional Comment: Urine drug screen results: THC-Marijuana, FEN-Fentanyl, MOP- Opiates, MTD-Methadone, BZO-Benzodiazepines. Noted. Mental Status Exam - Mental Status Exam Alert and Oriented to: Time, Place, Person Cognitive Function: Good Patient Appearance: Well Groomed Mood: Hopeful, Euthymic Affect: Appropriate, Normal Range Patient Behavior: Appropriate, Cooperative Speech Pattern: Clear Voice Loudness: Normal Thought Process: Intact, Goal Oriented Thought Disorder: Not Present Hallucinations: Denies Suicidal Ideation: Denies Insight/Judgement: Poor (minimizing the negative impact of JAYLIN on his current level of functioning ) Sleep: Poorly, Difficulty falling asleep Appetite: Good Muscle strength/Tone: Normal (no complaint offered) Gait/Station: Normal Psychiatric Findings - Problem List ([place] 1, 2,3) (1) Opioid dependence on agonist therapy Current Visit: Yes Status: Chronic (2) Cannabis dependence Current Visit: Yes Status: Chronic (3) Nicotine dependence, uncomplicated Current Visit: Yes Status: Chronic Qualifiers: Nicotine product type: cigarettes Qualified Code(s): F17.210 - Nicotine dependence, cigarettes, uncomplicated (4) Substance induced mood disorder Current Visit: Yes Status: Chronic (5) History of bipolar disorder Current Visit: Yes Status: Chronic (6) Insomnia Current Visit: Yes Status: Chronic (7) Non-compliance Current Visit: Yes Status: Chronic - Initial Treatment Plan Initial Treatment Plan: Psychoeducation. Sleep hygiene. Support and motivational counseling. NA meetings. Resumption of treatment with an atypical agent is justified in view of this patient's psychiatric profile (and genetic background). Mr Dinesh CUMMINS is in agreement with plan to restart seroquel ( insists on a low dose). Seroquel 100 mg po hs. Ordered. Side effects/benefits discussed with patient. Gave consent (verbal) to MD. Observation.
[2019-06-15] MEDS: QUEtiapine FUMARATE 100 MG TABLET (FP) PO SCH (21:12)
[2019-06-15] MEDS: THIAMINE HCL 100 MG TABLET (FP) PO SCH (21:12)
[2019-06-16 06:53] VITALS: TEMP 97.8
[2019-06-16] MEDS: METHADONE HCL 40 MG DISPERSABLE TABLET PO SCH (06:55)
[2019-06-16] MEDS: PRENATAL VITAMINS W/ FOLIC ACID TABLET (FP) PO SCH (10:20)
[2019-06-16] MEDS: THIAMINE HCL 100 MG TABLET (FP) PO SCH (21:10)
[2019-06-16] MEDS: QUEtiapine FUMARATE 100 MG TABLET (FP) PO SCH (21:10)
[2019-06-17] MEDS: METHADONE HCL 40 MG DISPERSABLE TABLET PO SCH (06:27)
[2019-06-17 06:49] VITALS: BP 121/87; PULSE 75
[2019-06-17] MEDS: NICOTINE POLACRILEX 2 MG GUM BUC PRN (09:56)
[2019-06-17] MEDS: PRENATAL VITAMINS W/ FOLIC ACID TABLET (FP) PO SCH (09:56)
--- NOTE | 2019-06-17 19:57 | PN ---
[facility] Progress Note Note: patient did not want to completed treatment,all attempts to convince patient to stay with no avail, high risks of relapsing explained,patient signed release ama,stated he is felling well,will go home to stay with his mother and she is awared he is coming home, will follow up with methadone maintenance clinic in am,left unit in stable condition,no suicidal,no homicidal ideation
--- NOTE | 2019-06-17 20:01 | DS ---
[facility] Rehab Discharge Summary - [facility] Rehab Discharge Summary Admission Date: 06/14/19 Discharge Date: 06/17/19 - History Present History: Cannabis dependence, MMTP, Opioid dependence, Sedative dependence - Discharge Physical Exam Vital Signs: Vital Signs Temperature 97.8 F 06/17/19 06:49 Pulse Rate 75 06/17/19 06:49 Respiratory Rate 18 06/17/19 06:49 Blood Pressure 121/87 06/17/19 06:49 O2 Sat by Pulse Oximetry (%) Pertinent Admission Physical Exam Findings: Last Vital Signs Temp Pulse Resp BP Pulse Ox 97.8 F 75 18 121/87 06/17/19 06:49 06/17/19 06:49 06/17/19 06:49 06/17/19 06:49 Laboratory Last Values WBC 8.4 K/mm3 (4.0-10.0) 06/14/19 14:40 RBC 4.05 M/mm3 (4.00-5.60) 06/14/19 14:40 Hgb 11.6 GM/dL (11.7-16.9) L 06/14/19 14:40 Hct 35.6 % (35.4-49) 06/14/19 14:40 MCV 87.9 fl (80-96) 06/14/19 14:40 MCH 28.6 pg (25.7-33.7) 06/14/19 14:40 MCHC 32.5 g/dl (32.0-35.9) 06/14/19 14:40 RDW 13.8 % (11.9-15.9) 06/14/19 14:40 Plt Count 279 K/MM3 (134-434) 06/14/19 14:40 MPV 7.5 fl (7.5-11.1) 06/14/19 14:40 Sodium 138 mmol/L (136-145) 06/14/19 14:40 Potassium 4.1 mmol/L (3.5-5.1) 06/14/19 14:40 Chloride 102 mmol/L (98-107) 06/14/19 14:40 Carbon Dioxide 29 mmol/L (21-32) 06/14/19 14:40 Anion Gap 7 MMOL/L (8-16) L 06/14/19 14:40 BUN 12.7 mg/dL (7-18) 06/14/19 14:40 Creatinine 0.9 mg/dL (0.55-1.3) 06/14/19 14:40 Est GFR (CKD-EPI)AfAm 137.10 06/14/19 14:40 Est GFR (CKD-EPI)NonAf 118.29 06/14/19 14:40 Random Glucose 89 mg/dL (74-106) 06/14/19 14:40 Calcium 8.9 mg/dL (8.5-10.1) 06/14/19 14:40 Total Bilirubin < 0.1 mg/dL (0.2-1) L 06/14/19 14:40 AST 24 U/L (15-37) 06/14/19 14:40 ALT 34 U/L (13-61) 06/14/19 14:40 Alkaline Phosphatase 116 U/L (45-117) 06/14/19 14:40 Total Protein 7.1 g/dl (6.4-8.2) 06/14/19 14:40 Albumin 4.3 g/dl (3.4-5.0) 06/14/19 14:40 Urine Color Yellow 06/15/19 11:00 Urine Appearance Clear 06/15/19 11:00 Urine pH 5.0 (5.0-8.0) 06/15/19 11:00 Ur Specific [place] 1.029 (1.010-1.035) 06/15/19 11:00 Urine Protein Negative (NEGATIVE) 06/15/19 11:00 Urine Glucose (UA) Negative (NEGATIVE) 06/15/19 11:00 Urine Ketones Negative (NEGATIVE) 06/15/19 11:00 Urine Blood Negative (NEGATIVE) 06/15/19 11:00 Urine Nitrite Negative (NEGATIVE) 06/15/19 11:00 Urine Bilirubin Negative (NEGATIVE) 06/15/19 11:00 Urine Urobilinogen 0.2 mg/dL (0.2-1.0) 06/15/19 11:00 Ur Leukocyte Esterase 1+ (NEGATIVE) H 06/15/19 11:00 Urine WBC (Auto) 58 /hpf (0-5) 06/15/19 11:00 Urine RBC (Auto) 1 /hpf (0-4) 06/15/19 11:00 Urine Casts (Auto) 52 /lpf (0-8) 06/15/19 11:00 U Epithel Cells (Auto) 10.2 /HPF (0-5/HPF) 06/15/19 11:00 U Sm Round Cell (Auto) None seen 06/15/19 11:00 Urine Bacteria (Auto) 12.7 /hpf (NEGATIVE) 06/15/19 11:00 RPR Titer Nonreactive (NONREACTIVE) 06/14/19 14:40 - Treatment Hospital Course: patient left ama - Medication Discharge Medications: Ambulatory Orders Quetiapine Fumarate [Seroquel -] 200 mg PO BID #60 tablet 08/24/18 Albuterol Sulfate Inhaler - [Ventolin HFA Inhaler -] 2 inh PO Q6H PRN #1 inhaler 11/06/18 Gabapentin 300 mg PO TID 11/29/18 - Discharge Instructions Diet, activity, other medical instructions: Diet: Activity: Other medical instructions: - Diagnosis (1) Benzodiazepine abuse Current Visit: Yes Status: Acute (2) Alcohol use disorder Current Visit: Yes Status: Chronic (3) Cannabis dependence Current Visit: Yes Status: Chronic (4) Cocaine abuse Current Visit: Yes Status: Chronic (5) History of bipolar disorder Current Visit: Yes Status: Chronic (6) Opioid dependence on agonist therapy Current Visit: Yes Status: Chronic (7) Methadone maintenance therapy patient Current Visit: No Status: Acute (8) Asthma Current Visit: No Status: Chronic Qualifiers: Asthma severity: mild Asthma persistence: persistent Asthma complication type: uncomplicated Qualified Code(s): J45.30 - Mild persistent asthma, uncomplicated - AMA Did Patient Leave Against Medical Advice: Yes Additional Comments: patient is stable,leave ama,follow up with methadone maintenance clinic
== END 2019-06-17 19:37 | disposition left against medical advice (07) | DRG 770 ==
LOC: YASAS 10:16 → Y5N 13:55 → Y6N 06-17 18:48 → Y3W 06-17 18:49
PROVIDERS: ADMIT Neuromusculoskeletal Medicine & OMM; ATTEND Neuromusculoskeletal Medicine & OMM
PROC: HZ42ZZZ Group Counseling for Substance Abuse Treatment, Cognitive-Behavioral (ICD-10-PCS; principal; 2019-06-14)
DX: F10.20 Alcohol dependence, uncomplicated (principal); F11.20 Opioid dependence, uncomplicated; F12.20 Cannabis dependence, uncomplicated; F13.10 Sedative, hypnotic or anxiolytic abuse, uncomplicated; F14.10 Cocaine abuse, uncomplicated; F17.210 Nicotine dependence, cigarettes, uncomplicated; F19.24 Other psychoactive substance dependence with psychoactive substance-induced mood disorder; J45.30 Mild persistent asthma, uncomplicated; G47.00 Insomnia, unspecified; R11.2 Nausea with vomiting, unspecified; R00.0 Tachycardia, unspecified; Z91.010 Allergy to peanuts; Z91.19 Patient's noncompliance with other medical treatment and regimen
CPT/HCPCS: 36415; 80053; 81003; 85027; 86593; Q0162